=== PATIENT | male | born 1985 | race Caucasian/White ===

== ENCOUNTER 2020-11-11 18:38 | Emergency (ER) | payer SELFPAY ==
[2020-11-11 18:46] VITALS: BP 126/88; PULSE 108; RESP 16; TEMP 36.3; O2SAT 99; BMI 27.1
[2020-11-11] MEDS: sodium chloride 0.9% 1,000 ML 999 ML IV ×3 (19:25→22:15)
[2020-11-11] MEDS: ondansetron 2 mg/ML SDV 2 mL 4 MG IVP (19:28)
[2020-11-11 19:30] LABS: Basophils % 0.3 %; Eosinophils % 0.1 %; Hematocrit 56.9 % (42.0-52.0); Hemoglobin 19.6 g/dL (11.7-16.6); Lymphocytes # 2.1 10^3/uL (0.8-4.8); Lymphocytes % 14.4 %; Mean Corpuscular HGB Conc 34.4 g/dL (30.0-36.0); Mean Corpuscular Hemoglobin 29.1 pg (28.0-34.0); Mean Corpuscular Volume 84.4 fL (80-94); Mean Platelet Volume 10.6 fL (7.4-10.4); Monocytes # 1.1 10^3/uL (0.2-0.9); Monocytes % 7.5 %; Neutrophils # 11.42 10^3/uL (1.8-7.7); Neutrophils % 77.5 %; Nucleated Red Blood Cells % 0 %; Platelet Count 357 10^3/cmm (130-400); Red Blood Count 6.74 10^6/uL (4.1-5.3); Red Cell Distribution Width 12.4 % (12.1-15.1); White Blood Count 14.7 10^3/uL (4.0-10.0)
--- NOTE | 2020-11-11 19:48 | ED_ITS ---
HPI - Nausea/Vomiting/Diarrhea General: Chief complaint: Abdominal Pain Stated complaint: ab pain, n/v Time Seen by Provider: 11/11/20 18:52 History of Present Illness: HPI Narrative: This patient is a 34-year-old male who presents with vomiting and abdominal pain. His symptoms started on Sunday and have been constant. He has not had diarrhea. He has not been able to eat or drink anything. He throws up everything that he tries to drink. He reports that the only relief he gets is sitting in the hot shower which helps for a little while. He has never had anything like this before. He has no history of prior abdominal surgeries. He has not seen any blood in the stool or in the emesis. No coffee-ground emesis. His pain is a crampy and midabdominal. No one else has been sick around him. He has had episodes of chills and sweats but no documented fevers. He is otherwise healthy. MD elicited complaint: nausea, vomiting and abdominal pain Onset (ago): day(s) (5) Description of vomiting: watery Associated nausea: Yes Associated abdominal pain: Yes Location of pain: Epigastric and Periumbilical Radiation: does not radiate Pain consistency: constant and colicky Severity: severe Quality: cramping and aching Exacerbating factors: eating, vomiting and movement Relieving factors: hot shower/bath Associated symtoms: Reports diaphoresis, decreased urine output, fatigue, malaise, nausea, weakness and other (Feels dehydrated, minimal urine output); Denies change in vision, chest pain or headache(s) Review of Systems General: Reports: 10 or more systems reviewed and unremarkable except in HPI and below Const: Reports: chills, fatigue, malaise and diaphoresis; Denies: fever(s) Eyes: Denies: change in vision ENMT: Denies: odynophagia Card: Denies: chest pain or swelling of feet/ankles Resp: Denies: dyspnea, productive cough or non-productive cough GI: Reports: abdominal pain and nausea : Reports: oliguria; Denies: flank pain Musc: Denies: neck pain or back pain Skin/Breast: Denies: rash Neuro: Denies: headache(s), numbness in extremities or weakness in extremities [place]/Lymph: Denies: easy bruising or easy bleeding PFSH ED PFSH: Social History Smoking and tobacco status: current every day smoker cigarettes Packs smoked per day: 0.5 Alcohol intake: never Substance/Drug Use: current Substance/Drug use frequency: daily Substance/Drug use type: Marijuana Physical Exam Const: COMMON NORMALS: patient oriented x3, no limitations and alert GENERAL APPEARANCE: cooperative and other (Uncomfortable) NUTRITIONAL APPEARANCE: thin ORIENTATION/CONSCIOUSNESS: Yes awake, Yes oriented to person, Yes oriented to place and Yes oriented to time HENMT: HEAD & SCALP: normal to inspection FACE & SINUS: normal facial exam Eye: GENERAL EYE: appearance normal, both eyes and all related structures Neck/C-Spine: COMMON NORMALS: supple, no meningeal signs and no JVD Chest: COMMONS NORMALS: normal inspection of the chest Resp: COMMON NORMALS: normal respiratory effort, No use of accessory muscles and clear to auscultation bilaterally AUSCULTATION: clear to auscultation bilaterally Cardio: COMMON NORMALS: no JVD, regular rate, regular rhythm and No murmurs present (Cardio) RATE: regular rate RHYTHM: regular rhythm GI: COMMON NORMALS: Normal to inspection, nondistended, normoactive bowel sounds present, Soft to palpation and non-tender INSPECTION: Yes normal to inspection AUSCULTATION: Yes Hypoactive bowel sounds present PALPATION: Yes Soft to palpation and Yes Tenderness to palpation present (GI) (Epigastric) Back/Pelvis: COMMON NORMALS: thoracic and lumbar spine normal to inspection Extremity: COMMON NORMALS: normal to inspection Neuro: COMMON NORMALS: patient oriented x3, moves all extremities, no focal motor deficits and no sensory deficits noted SENSORIUM/ORIENTATION: Yes al ert, Yes oriented to person, Yes oriented to place and Yes oriented to time MENINGEAL SIGNS: Yes no meningeal signs Psych: COMMON NORMALS: mental status grossly normal, cooperative and normal affect Skin: COMMON NORMALS: no rashes or lesions noted and turgor normal GENERAL SKIN EXAM: no rashes or lesions noted and turgor normal Course ED course: Patient improved initially with Zofran and fluids. When he tried to drink something he threw up again. I went ahead and give him some Haldol. He does admit to smoking marijuana frequently and I suspect this is cannabis hyperemesis. He did improve with the Haldol. He got a total of 3 L of fluid. He felt much better and was ready to go home. He was very open to the idea that the marijuana could have caused this and plans to stop using. Vital Signs: Vital signs: Vital Signs Temperature 97.3 F L 11/11/20 18:46 Pulse Rate 108 H 11/11/20 18:46 Respiratory Rate 16 11/11/20 23:05 Blood Pressure 126/88 11/11/20 18:46 Pulse Oximetry 99 11/11/20 18:46 MDM - Nausea/Vomiting/Diarrhea MDM Narrative: Medical decision making narrative: Hyperemesis related to cannabis use. Viral gastroenteritis. Bowel obstruction. Inflammatory bowel syndrome. Food poisoning. Lab Data: Labs: Lab Results 11/11/20 11/11/20 11/11/20 Range/Units 18:55 18:55 20:32 WBC 14.7 H (4.0-10.0) 10^3/ uL RBC 6.74 H (4.1-5.3) 10^6/u L Hgb 19.6 H (11.7-16.6) g/dL Hct 56.9 H (42.0-52.0) % MCV 84.4 (80-94) fL MCH 29.1 (28.0-34.0) pg MCHC 34.4 (30.0-36.0) g/dL RDW 12.4 (12.1-15.1) % Plt Count 357 (130-400) 10^3/c mm MPV 10.6 H (7.4-10.4) fL Neut % (Auto) 77.5 % Lymph % (Auto) 14.4 % [place] % (Auto) 7.5 % Eos % (Auto) 0.1 % Baso % (Auto) 0.3 % Neut # (Auto) 11.42 H (1.8-7.7) 10^3/u L Lymph # (Auto) 2.1 (0.8-4.8) 10^3/u L [place] # (Auto) 1.1 H (0.2-0.9) 10^3/u L Eos # (Auto) 0.0 (0.0-0.8) 10^3/u L Baso # (Auto) 0.0 (0.0-0.1) 10^3/u L Nucleated RBC % (a uto) 0 % Nucleated RBCs # 0.0 /100WBC Sodium 134 L (136-145) mmol/L Potassium 3.7 (3.5-5.1) mmol/L Chloride 89 L (98-107) mmol/L Carbon Dioxide 28 (22-29) mmol/L Anion Gap 20.7 H (5-19) BUN 18 (6-20) mg/dL Creatinine 1.1 (0.7-1.2) mg/dL GFR Calculation 75.7 L (90-130) mL/min Glucose 105 (65-115) mg/dL Calculated Osmolal ity 280 L (285-295) mOsm/k g Calcium 10.1 (8.5-10.5) mg/dL Total Bilirubin 0.6 (0.15-1.2) mg/dL AST 20 (0-40) U/L ALT 31 (0-41) U/L Alkaline Phosphata se 113 (40-130) IU/L Total Protein 8.8 H (6.6-8.7) g/dL Albumin 5.2 (3.5-5.2) g/dL Globulin 3.6 (1.3-4.6) g/dL Lipase 28 (13-60) U/L Urine Color Yellow (Yellow) Urine Appearance Hazy A (CLEAR) Urine pH 6.5 (5-7) Ur Specific Gravit y 1.015 (1.005-1.030) Urine Protein Trace (Negative) Urine Glucose (UA) Norm (Normal) Urine Ketones Negative (Negative) Urine Blood Neg (Negative) Urine Nitrate Negative (Negative) Urine Bilirubin Neg (Negative) Urine Urobilinogen Norm (Negative) mg/dL Ur Leukocyte Isaura ase Negative (Negative) Urine RBC 0-4 H (0-2) /hpf Urine WBC None (0-5) /hpf Ur Squamous Epith Cells 0-4 H (0-5) /hpf Amorphous Sediment Not Reportable Urine Bacteria Trace (NONE) /hpf Urine Mucus 4+ /hpf Urine Opiates Scre en (Negative) ng/mL Ur Barbiturates Sc reen (Negative) ng/mL Ur Phencyclidine S crn (Negative) ng/mL Ur Amphetamines Sc reen (Negative) ng/mL U Benzodiazepines Scrn (Negative) ng/mL Urine Cocaine Scre en (Negative) ng/mL U Marijuana (THC) Screen (Negative) ng/mL 11/11/20 Range/Units 20:32 WBC (4.0-10.0) 10^3/ uL RBC (4.1-5.3) 10^6/u L Hgb (11.7-16.6) g/dL Hct (42.0-52.0) % MCV (80-94) fL MCH (28.0-34.0) pg MCHC (30.0-36.0) g/dL RDW (12.1-15.1) % Plt Count (130-400) 10^3/c mm MPV (7.4-10.4) fL Neut % (Auto) % Lymph % (Auto) % [place] % (Auto) % Eos % (Auto) % Baso % (Auto) % Neut # (Auto) (1.8-7.7) 10^3/u L Lymph # (Auto) (0.8-4.8) 10^3/u L [place] # (Auto) (0.2-0.9) 10^3/u L Eos # (Auto) (0.0-0.8) 10^3/u L Baso # (Auto) (0.0-0.1) 10^3/u L Nucleated RBC % (a uto) % Nucleated RBCs # /100WBC Sodium (136-145) mmol/L Potassium (3.5-5.1) mmol/L Chloride (98-107) mmol/L Carbon Dioxide (22-29) mmol/L Anion Gap (5-19) BUN (6-20) mg/dL Creatinine (0.7-1.2) mg/dL GFR Calculation (90-130) mL/min Glucose (65-115) mg/dL Calculated Osmolal ity (285-295) mOsm/k g Calcium (8.5-10.5) mg/dL Total Bilirubin (0.15-1.2) mg/dL AST (0-40) U/L ALT (0-41) U/L Alkaline Phosphata se (40-130) IU/L Total Protein (6.6-8.7) g/dL Albumin (3.5-5.2) g/dL Globulin (1.3-4.6) g/dL Lipase (13-60) U/L Urine Color (Yellow) Urine Appearance (CLEAR) Urine pH (5-7) Ur Specific Gravit y (1.005-1.030) Urine Protein (Negative) Urine Glucose (UA) (Normal) Urine Ketones (Negative) Urine Blood (Negative) Urine Nitrate (Negative) Urine Bilirubin (Negative) Urine Urobilinogen (Negative) mg/dL Ur Leukocyte Isaura ase (Negative) Urine RBC (0-2) /hpf Urine WBC (0-5) /hpf Ur Squamous Epith Cells (0-5) /hpf Amorphous Sediment Urine Bacteria (NONE) /hpf Urine Mucus /hpf Urine Opiates Scre en Negative (Negative) ng/mL Ur Barbiturates Sc reen Negative (Negative) ng/mL Ur Phencyclidine S crn Negative (Negative) ng/mL Ur Amphetamines Sc reen Negative (Negative) ng/mL U Benzodiazepines Scrn Negative (Negative) ng/mL Urine Cocaine Scre en Negative (Negative) ng/mL U Marijuana (THC) Screen Positive H (Negative) ng/mL Discharge Plan Discharge Patient Disposition: Home Clinical Impression: Acute dehydration, Cannabinoid hyperemesis syndrome Vomiting Qualifiers: Vomiting type: unspecified Vomiting Intractability: unspecified Nausea presence: with nausea Qualified Code(s): R11.2 - Nausea with vomiting, un specified Condition: Stable Prescriptions: New Zofran 4 mg tablet 4 mg PO Q6H PRN (Reason: nausea and vomiting) Qty: 7 RF: 0 Discharge Orders: Discharge ED (Routine); Ordered 11/11/20 Ordered By: Armida Gracia Discharge Diet: Advance as tolerated Discharge Activity: Resume usual activity Patient Instructions: Acute Nausea and Vomiting (ED), Cannabis Abuse (ED), Opioid Safety Activity Restrictions/Additional Instructions: Gradually advance diet as tolerated. Stop marijuana use. Take over the counter pepcid for stomach upset and zofran as needed for nausea or vomiting. Return to the ED if not able to tolerate fluids. 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
[2020-11-11 20:01] LABS: Alanine Aminotransferase 31 U/L (0-41); Albumin Level 5.2 g/dL (3.5-5.2); Alkaline Phosphatase 113 IU/L (40-130); Aspartate Amino Transferase 20 U/L (0-40); Blood Urea Nitrogen 18 mg/dL (6-20); Calcium 10.1 mg/dL (8.5-10.5); Carbon Dioxide 28 mmol/L (22-29); Chloride 89 mmol/L (98-107); Globulin 3.6 g/dL (1.3-4.6); Glomerular Filtration Rate 75.7 mL/min (90-130); Glucose 105 mg/dL (65-115); Lipase 28 U/L (13-60); Osmolality Calculated 280 mOsm/kg (285-295); Sodium 134 mmol/L (136-145); Total Bilirubin 0.6 mg/dL (0.15-1.2); Total Protein 8.8 g/dL (6.6-8.7)
[2020-11-11 20:04] LABS: Anion Gap 20.7 (5-19); Potassium 3.7 mmol/L (3.5-5.1)
[2020-11-11 21:10] LABS: Add Urine Microscopic? YES; Bilirubin Urine Neg (Negative); Blood Urine Neg (Negative); Glucose Urine UA Norm (Normal); Ketones Urine Negative (Negative); Leukocyte Esterase Urine Negative (Negative); Nitrate Urine Negative (Negative); Protein Urine Trace (Negative); Specific Gravity, Urine 1.015 (1.005-1.030); Urine Appearance Hazy (CLEAR); Urine Color Yellow (Yellow); Urobilinogen Urine Norm (Negative); pH Urine 6.5 (5-7)
[2020-11-11 21:26] LABS: RBC Urine 0-4 /hpf (0-2); Squamous Epithelial Cell Urine 0-4 /hpf (0-5)
[2020-11-11 21:28] LABS: Add Urine Culture? No; Bacteria Urine TRACE /hpf; Mucus Urine 4+ /hpf
[2020-11-11] MEDS: haloperidol inj 5 mg/mL INJ 1 mL 2 MG IVP (22:09)
[2020-11-11 22:15] LABS: Amphetamines Screen Urine Negative (Negative); Barbiturates Screen Urine Negative (Negative); Benzodiazepines Screen Urine Negative (Negative); Cocaine Screen Urine Negative (Negative); Opiate Screen Urine Negative (Negative); PCP Screen Urine Negative (Negative); THC Screen Urine Positive (Negative)
[2020-11-11 23:05] VITALS: RESP 16
== END 2020-11-11 23:06 | disposition home or self-care (01) ==
PROVIDERS: Emergency Provider Emergency Medicine
DX: R11.2 Nausea with vomiting, unspecified (principal); F12.920 Cannabis use, unspecified with intoxication, uncomplicated; E86.0 Dehydration; F17.210 Nicotine dependence, cigarettes, uncomplicated
CPT/HCPCS: 80053; 80306; 81001; 83690; 85025; 96361; 96374; 96375; 99283; J1630; J2405; J7030

== ENCOUNTER 2022-11-28 10:41 | Emergency (ER) | payer SELFPAY ==
[2022-11-28 10:47] VITALS: BP 158/97; PULSE 58; RESP 16; TEMP 36.7; O2SAT 99; BMI 28.6
[2022-11-28] MEDS: sodium chloride 0.9% 1,000 ML 999 ML IV ×2 (11:19→12:15)
[2022-11-28] MEDS: ondansetron 2 mg/ML SDV 2 mL 4 MG IVP (11:19)
[2022-11-28 11:21] VITALS: BP 121/88; PULSE 56; O2SAT 99
[2022-11-28 11:24] LABS: Basophils % 0.2 %; Eosinophils % 0.2 %; Hematocrit 49.5 % (42.0-52.0); Hemoglobin 16.6 g/dL (11.7-16.6); Lymphocytes # 1.6 10^3/uL (0.8-4.8); Mean Corpuscular HGB Conc 33.5 g/dL (30.0-36.0); Mean Corpuscular Volume 86.4 fl (80-94); Mean Platelet Volume 10.3 fL (7.4-10.4); Monocytes # 0.5 10^3/uL (0.2-0.9); Monocytes % 5.4 %; Neutrophils # 6.58 10^3/uL (1.8-7.7); Nucleated Red Blood Cells % 0 %; Platelet Count 294 10^3/cmm (130-400); Red Blood Count 5.73 10^6/uL (4.1-5.3); White Blood Count 8.7 10^3/uL (4.0-10.0)
--- NOTE | 2022-11-28 11:36 | ED_ITS ---
HPI - Nausea/Vomiting/Diarrhea General: Chief complaint: Nausea/Vomiting/Diarrhea Stated complaint: abd pain,N/V Time Seen by Provider: 11/28/22 10:56 Source: patient Mode of arrival: ambulatory History of Present Illness: 36-year-old male presents emergency room complaining of persistent nausea and vomiting for the last 3 to 4 days. He has had difficult time holding any fluids down. Denies hematochezia melena hematemesis coffee-ground emesis. No fever sweats or chills. Complains of generalized abdominal aching and discomfort. No dysuria urgency or frequency. MD elicited complaint: nausea and vomiting Onset (ago): minute(s) Associated nausea: Yes Associated abdominal pain: Yes Location of pain: Diffuse Pain consistency: intermittent Severity: mild Quality: cramping Exacerbating factors: none Relieving factors: none Associated symtoms: Reports nausea; Denies altered mental status, anxiety, bloating, change in vision, chest pain, cough, diaphoresis, decreased urine output, dizziness, dysuria, epistaxis, f atigue, fecal incontinence, fevers/chills, headache(s), anorexia, malaise, myalgias, numbness, palpitations, rash, short of breath, syncope, tenesmus, tinnitus or weakness Review of Systems Const: Denies: fever(s), chills, fatigue, malaise or diaphoresis Eyes: Denies: change in vision ENMT: Denies: tinnitus or epistaxis Card: Denies: chest pain, palpitations or syncope Resp: Denies: dyspnea, productive cough or non-productive cough GI: Reports: abdominal pain, nausea and vomiting; Denies: diarrhea, bloating or fecal incontinence : Denies: dysuria, urinary frequency or urinary urgency Skin/Breast: Denies: rash or pruritus Neuro: Denies: headache(s) or dizziness Psych: Denies: anxiety PFSH ED PFSH: Social History Smoking and tobacco status: current every day smoker cigarettes Packs smoked per day: 0.5 Alcohol intake: never Physical Exam Const: EXAM LIMITATIONS: no altered mental status GENERAL APPEARANCE: cooperative and comfortable ORIENTATION/CONSCIOUSNESS: Yes awake, Yes oriented to person, Yes oriented to place and Yes oriented to time HENMT: COMMON NORMALS: normocephalic, atraumatic and hearing grossly normal bilaterally HEAD & SCALP: normocephalic and atraumatic Resp: COMMON NORMALS: normal respiratory effort, No retractions, No use of accessory muscles and clear to auscultation bilaterally AUSCULTATION: clear to auscultation bilaterally Cardio: COMMON NORMALS: regular rate, regular rhythm and No murmurs present (Cardio) RATE: regular rate RHYTHM: regular rhythm GI: COMMON NORMALS: Soft to palpation and No hepatosplenomegaly present AUSCULTATION: Yes normoactive bowel sounds PALPATION: Yes Soft to palpation, No Tenderness to palpation present (GI), No Guarding due to palpation present (GI) and Yes No hepatosplenomegaly present Extremity: COMMON NORMALS: normal to inspection, capillary refill normal, no clubbing, cyanosis or edema, no calf tenderness and no pedal edema Neuro: SENSORIUM/ORIENTATION: Yes oriented to person, Yes oriented to place and Yes oriented to time Skin: COMMON NORMALS: no rashes or lesions noted GENERAL SKIN EXAM: no rashes or lesions noted Course Vital Signs: Vital signs: Vital Signs Temperature 98.1 F 11/28/22 10:47 Pulse Rate 61 11/28/22 14:00 Respiratory Rate 16 11/28/22 10:47 Blood Pressure 126/96 11/28/22 14:00 Pulse Oximetry 97 11/28/22 14:00 Oxygen Delivery Me thod 11/28/22 14:00 MDM - Nausea/Vomiting/Diarrhea Medical Decision Making Labs reviewed. Patient improved after IV fluids and antiemetics. Ondansetron did not particularly help with the Phenergan was very helpful he is feeling much better we will discharge patient home clinical diet for 2 days and advance as tolerated promethazine as needed for persistent nausea and vomiting advance diet slowly with simple carbohydrates reviewed with the patient and his return if he has problems. Medical Records I reviewed the patient's medical records. Lab Data I reviewed the patient's lab results. 11/28/22 11:10 11/28/22 11:10 Laboratory Results WBC 8.7 10^3/uL (4.0-10.0) 11/28/22 11:10 RBC 5.73 10^6/uL (4.1-5.3) H 11/28/22 11:10 Hgb 16.6 g/dL (11.7-16.6) 11/28/22 11:10 Hct 49.5 % (42.0-52.0) 11/28/22 11:10 MCV 86.4 fl (80-94) 11/28/22 11:10 MCH 29.0 pg (28.0-34.0) 11/28/22 11:10 MCHC 33.5 g/dL (30.0-36.0) 11/28/22 11:10 RDW 13.0 % (12.1-15.1) 11/28/22 11:10 Plt Count 294 10^3/cmm (130-400) 11/28/22 11:10 MPV 10.3 fL (7.4-10.4) 11/28/22 11:10 Neut % (Auto) 76.0 % 11/28/22 11:10 Lymph % (Auto) 18.0 % 11/28/22 11:10 [place] % (Auto) 5.4 % 11/28/22 11:10 Eos % (Auto) 0.2 % 11/28/22 11:10 Baso % (Auto) 0.2 % 11/28/22 11:10 Neut # (Auto) 6.58 10^3/uL (1.8-7.7) 11/28/22 11:10 Lymph # (Auto) 1.6 10^3/uL (0.8-4.8) 11/28/22 11:10 [place] # (Auto) 0.5 10^3/uL (0.2-0.9) 11/28/22 11:10 Eos # (Auto) 0.0 10^3/uL (0.0-0.8) 11/28/22 11:10 Baso # (Auto) 0.0 10^3/uL (0.0-0.1) 11/28/22 11:10 Nucleated RBC % (auto) 0 % 11/28/22 11:10 Nucleated RBCs # 0.0 /100WBC 11/28/22 11:10 Sodium 136 mmol/L (136-145) 11/28/22 11:10 Potassium 3.2 mmol/L (3.5-5.1) L 11/28/22 11:10 Chloride 98 mmol/L (98-107) 11/28/22 11:10 Carbon Dioxide 25 mmol/L (22-29) 11/28/22 11:10 Anion Gap 16.2 (5-19) 11/28/22 11:10 BUN 16 mg/dL (6-20) 11/28/22 11:10 Creatinine 1.1 mg/dL (0.7-1.2) 11/28/22 11:10 GFR Calculation 74.9 mL/min (90-130) L 11/28/22 11:10 Glucose 107 mg/dL (65-115) 11/28/22 11:10 Calculated Osmolality 284 mOsm/kg (285-295) L 11/28/22 11:10 Calcium 9.1 mg/dL (8.5-10.5) 11/28/22 11:10 Total Bilirubin 0.8 mg/dL (0.15-1.2) 11/28/22 11:10 AST 22 U/L (0-40) 11/28/22 11:10 ALT 24 U/L (0-41) 11/28/22 11:10 Alkaline Phosphatase 89 U/L (40-130) 11/28/22 11:10 Total Protein 7.5 g/dL (6.6-8.7) 11/28/22 11:10 Albumin 4.7 g/dL (3.5-5.2) 11/28/22 11:10 Globulin 2.8 g/dL (1.3-4.6) 11/28/22 11:10 Lipase 25 U/L (13-60) 11/28/22 11:10 Urine Color Dark yellow (Yellow) 11/28/22 12:20 Urine Appearance Hazy (CLEAR) A 11/28/22 12:20 Urine pH 7 (5-7) 11/28/22 12:20 Ur Specific [place] 1.020 (1.005-1.030) 11/28/22 12:20 Urine Protein Neg (Negative) 11/28/22 12:20 Urine Glucose (UA) Norm (Normal) 11/28/22 12:20 Urine Ketones 3+ (Negative) H 11/28/22 12:20 Urine Blood Neg (Negative) 11/28/22 12:20 Urine Nitrate Negative (Negative) 11/28/22 12:20 Urine Bilirubin 1+ (Negative) H 11/28/22 12:20 Urine Urobilinogen 4 mg/dL (Negative) H 11/28/22 12:20 Ur Leukocyte Esterase Negative (Negative) 11/28/22 12:20 Urine RBC None /hpf (0-2) 11/28/22 12:20 Urine WBC None /hpf (0-5) 11/28/22 12:20 Ur Squamous Epith Cells Rare /hpf (0-5) 11/28/22 12:20 Amorphous Sediment Not Reportable 11/28/22 12:20 Urine Bacteria None /hpf (NONE) 11/28/22 12:20 Urine Mucus 2+ /hpf 11/28/22 12:20 Discharge Plan Discharge Patient Disposition: Home Clinical Impression: Gastroenteritis Condition: Stable Prescriptions: New promethazine 25 mg tablet 25 mg PO Q6H PRN (Reason: nausea and vomiting) Qty: 20 0RF No Action ondansetron 4 mg Tablet,Disintegrating 4 mg PO Q6H PRN (Reason: Nausea) Discharge Orders: Discharge ED (Routine); Ordered 11/28/22 Ordered By: Flakito De Dios Discharge Diet: Clear Liquid Discharge Activity: Increase activity as tolerated Activity Restrictions/Additional Instructions: You are seen today for persistent nausea and vomiting. Recommend clear liquid diet for the next 24 to 48 hours then advance as tolerated. You can use the Phenergan as needed for relief of symptoms. 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
[2022-11-28 11:44] LABS: Alanine Aminotransferase 24 U/L (0-41); Albumin Level 4.7 g/dL (3.5-5.2); Alkaline Phosphatase 89 U/L (40-130); Anion Gap 16.2 (5-19); Aspartate Amino Transferase 22 U/L (0-40); Blood Urea Nitrogen 16 mg/dL (6-20); Calcium 9.1 mg/dL (8.5-10.5); Carbon Dioxide 25 mmol/L (22-29); Chloride 98 mmol/L (98-107); Globulin 2.8 g/dL (1.3-4.6); Glomerular Filtration Rate 74.9 mL/min (90-130); Glucose 107 mg/dL (65-115); Lipase 25 U/L (13-60); Osmolality Calculated 284 mOsm/kg (285-295); Potassium 3.2 mmol/L (3.5-5.1); Sodium 136 mmol/L (136-145); Total Bilirubin 0.8 mg/dL (0.15-1.2); Total Protein 7.5 g/dL (6.6-8.7)
[2022-11-28] MEDS: promethazine 25 mg/mL SDV 1 mL IM (12:55)
[2022-11-28 12:57] VITALS: BP 122/77; PULSE 69; O2SAT 100
[2022-11-28 13:00] VITALS: BP 146/96; PULSE 50; O2SAT 100
[2022-11-28 13:59] LABS: Urine Color Dark Yellow (Yellow)
[2022-11-28 14:00] VITALS: BP 126/96; PULSE 61; O2SAT 97
[2022-11-28 14:00] LABS: Add Urine Microscopic? YES; Bilirubin Urine 1+ (Negative); Blood Urine Neg (Negative); Glucose Urine UA Norm (Normal); Ketones Urine 3+ (Negative); Leukocyte Esterase Urine Negative (Negative); Nitrate Urine Negative (Negative); Protein Urine Neg (Negative); Urine Appearance Hazy (CLEAR); Urobilinogen Urine 4 mg/dL (Negative); pH Urine 7 (5-7)
[2022-11-28 14:01] LABS: Add Urine Culture? No; Mucus Urine 2+ /hpf; Squamous Epithelial Cell Urine RARE /hpf (0-5)
--- NOTE | 2022-12-05 12:55 | DCPLANNER ---
12.02.22 - patient called due to no primary care physician - no answer at this time 12.03.22 - patient called due to no primary care physician - no answer at this time
== END 2022-11-28 14:40 | disposition home or self-care (01) ==
PROVIDERS: Emergency Provider Family Medicine
DX: K52.9 Noninfective gastroenteritis and colitis, unspecified (principal); F17.210 Nicotine dependence, cigarettes, uncomplicated
CPT/HCPCS: 80053; 81001; 83690; 85025; 96372; 96374; 99284; J2405; J2550; J7030

== ENCOUNTER 2023-01-09 16:47 | Emergency (ER) | payer SELFPAY ==
[2023-01-09 17:07] VITALS: BP 158/109; PULSE 81; RESP 16; TEMP 36.7; O2SAT 95
--- NOTE | 2023-01-09 17:32 | ED_ITS ---
HPI - Nausea/Vomiting/Diarrhea General: Chief complaint: Nausea/Vomiting/Diarrhea Stated complaint: N/V Time Seen by Provider: 01/09/23 17:32 History of Present Illness: 37-year-old male patient comes in today with nausea and vomiting. Patient reports symptoms for the last 3 to 4 days. Patient had previous episode at 22 November at that time he was diagnosed with gastroenteritis. Patient reports a total of 5 episodes over the last 2 years. Patient reports that he does continue to smoke cannabis but has not taken any since starting nausea and vomiting. Patient appears nontoxic. Patient appears in mild discomfort. Patient does smoke nicotine. Patient denies alcohol use or other drug use. Patient takes no routine medications. Patient denies any blood in stool or vomitus. MD elicited complaint: nausea and vomiting Pertinent past history: cyclical vomiting Onset (ago): day(s) Description of vomiting: food contents and watery Associated nausea: Yes Associated abdominal pain: Yes (Midepigastric) Location of pain: Epigastric Pain consistency: intermittent Severity: mild Quality: cramping Exacerbating factors: vomiting Context: marijuana use Associated symtoms: Reports malaise and nausea; Denies change in vision, chest pain or headache(s) Review of Systems General: Reports: 10 or more systems reviewed and unremarkable except in HPI and below Const: Reports: malaise; Denies: fever(s) Eyes: Denies: change in vision ENMT: Denies: throat pain Card: Denies: chest pain Resp: Denies: dyspnea GI: Reports: nausea and vomiting; Denies: diarrhea or constipation : Denies: difficulty urinating Musc: Denies: neck pain or back pain Skin/Breast: Denies: rash Neuro: Denies: headache(s) PFSH ED PFSH: Social History Smoking and tobacco status: current every day smoker cigarettes Packs smoked per day: 0.5 Alcohol intake: never Physical Exam Const: COMMON NORMALS: alert HENMT: COMMON NORMALS: normocephalic HEAD & SCALP: normocephalic MOUTH: Normal oral and palatal mucosa present THROAT: posterior oropharynx normal Neck/C-Spine: COMMON NORMALS: full ROM Resp: COMMON NORMALS: normal respiratory effort and clear to auscultation bilaterally AUSCULTATION: clear to auscultation bilaterally Cardio: COMMON NORMALS: regular rate and regular rhythm RATE: regular rate RHYTHM: regular rhythm GI: COMMON NORMALS: Soft to palpation AUSCULTATION: Yes normoactive bowel sounds PALPATION: Yes Soft to palpation and Yes Tenderness to palpation present (GI) (Epigastric) : COMMON NORMALS: Yes no CVA tenderness BLADDER/KIDNEY EXAM: Yes no CVA t enderness Back/Pelvis: COMMON NORMALS: no CVA tenderness Extremity: COMMON NORMALS: no pedal edema Neuro: SENSORIUM/ORIENTATION: Yes alert Skin: COMMON NORMALS: turgor normal GENERAL SKIN EXAM: turgor normal Course Vital Signs: Vital signs: Vital Signs Temperature 98.2 F 01/09/23 20:51 Pulse Rate 76 01/09/23 20:51 Respiratory Rate 14 01/09/23 20:51 Blood Pressure 142/91 01/09/23 20:51 Pulse Oximetry 97 01/09/23 20:51 Oxygen Delivery Me thod Room Air 01/09/23 20:51 MDM - Nausea/Vomiting/Diarrhea Medical Decision Making 37-year-old male patient comes in today for complaints of persistent nausea and vomiting for the last 3 days. Patient has a prior history of cyclic vomiting syndrome. Patient reports syndrome started about 2 years ago and he has had 5 episodes since. Patient on exam has some epigastric tenderness. Bowel sounds are normal. Vital signs are normal except for elevated blood pressure. Differential diagnosis includes but not limited to gastritis, pancreatitis, gallbladder disease, cyclic vomiting syndrome, PUD. CT noted some signs of gastritis and colitis. Patient had improvement of symptoms after 2 L IV fluid, 25 mg of promethazine IM, along with 15 mg ketorolac and 10 mg of Reglan. Patient felt well enough to go home. Discussed patient the abnormalities for his CT scan recommended further evaluation with endoscopy including upper GI and colonoscopy. Case management was requested for follow-up appointment. Recommend return to the ER for worsening symptoms such as high fever, blood in vomit or stool, or new concerns. Patient stated understanding agreed to plan. Lab Data 01/09/23 17:30 01/09/23 17:30 Radiology Impressions Abdomen/Pelvis CT 01/09/23 18:51 IMPRESSION: 1. Thickening of the distal colon suspicious for infectious/inflammatory colitis. No bowel obstruction. 2. Possible gastritis. Laboratory Results WBC 12.7 10^3/uL (4.0-10.0) H 01/09/23 17: RBC 6.08 10^6/uL (4.1-5.3) H 01/09/23 17: Hgb 18.1 g/dL (11.7-16.6) H 01/09/23 17: Hct 52.9 % (42.0-52.0) H 01/09/23 17: MCV 87.0 fl (80-94) 01/09/23 17: MCH 29.8 pg (28.0-34.0) 01/09/23 17: MCHC 34.2 g/dL (30.0-36.0) 01/09/23: RDW 13.4 % (12.1-15.1) 01/09/23: Plt Count 319 10^3/cmm (130-400) 01/09/23 17: MPV 9.4 fL (7.4-10.4) 01/09/23 17: Neut % (Auto) 75.9 % 01/09/23 17: Lymph % (Auto) 17.4 % 01/09/23 17:30 [place] % (Auto) 6.1 % 01/09/23 17: Eos % (Auto) 0.2 % 01/09/23: Baso % (Auto) 0.2 % 01/09/23 17:30 Neut # (Auto) 9.66 10^3/uL (1.8-7.7) H 01/09/23: Lymph # (Auto) 2.2 10^3/uL (0.8-4.8) 01/09/23 17:30 [place] # (Auto) 0.8 10^3/uL (0.2-0.9) 01/09/23 17: Eos # (Auto) 0.0 10^3/uL (0.0-0.8) 01/09/23 17: Baso # (Auto) 0.0 10^3/uL (0.0-0.1) 01/09/23 17: Nucleated RBC % (auto) 0 % 01/09/23: Nucleated RBCs # 0.0 /100WBC 04/18/23 17:30 Sodium 138 mmol/L (136-145) 01/09/23 17:30 Potassium 4.0 mmol/L (3.5-5.1) 01/09/23 17:30 Chloride 99 mmol/L (98-107) 01/09/23 17:30 Carbon Dioxide 27 mmol/L (22-29) 01/09/23 17:30 Anion Gap 16.0 (5-19) 01/09/23 17:30 BUN 16 mg/dL (6-20) 01/09/23 17:30 Creatinine 0.9 mg/dL (0.7-1.2) 01/09/23 17:30 GFR Calculation 93.9 mL/min (90-130) 01/09/23 17: Glucose 104 mg/dL (65-115) 01/09/23 17:30 Calculated Osmolality 287 mOsm/kg (285-295) 01/09/23 17: Calcium 9.1 mg/dL (8.5-10.5) 01/09/23 17:30 Total Bilirubin 0.6 mg/dL (0.15-1.2) 01/09/23 17:30 AST 16 U/L (0-40) 01/09/23 17:30 ALT 21 U/L (0-41) 01/09/23 17:30 Alkaline Phosphatase 97 U/L (40-130) 01/09/23 17:30 Total Protein 8.1 g/dL (6.6-8.7) 01/09/23 17:30 Albumin 5.2 g/dL (3.5-5.2) 01/09/23 17:30 Globulin 2.9 g/dL (1.3-4.6) 01/09/23 17:30 Lipase 39 U/L (13-60) 01/09/23 17:30 Urine Color Yellow (Yellow) 01/09/23 17:33 Urine Appearance Clear (CLEAR) 01/09/23: Urine pH 5 (5-7) 01/09/23 17: Ur Specific [place] 1.020 (1.005-1.030) 01/09/23 17:33 Urine Protein Neg (Negative) 01/09/23: Urine Glucose (UA) Norm (Normal) 01/09/23 17: Urine Ketones Negative (Negative) 01/09/23 17:33 Urine Blood Neg (Negative) 01/09/23 17:33 Urine Nitrate Negative (Negative) 01/09/23 17:33 Urine Bilirubin Neg (Negative) 01/09/23 17:33 Urine Urobilinogen 1 mg/dL (Negative) H 01/09/23 17:33 Ur Leukocyte Esterase Negative (Negative) 01/09/23 17:33 Discharge Plan Discharge Patient Disposition: Home Clinical Impression: Cyclic vomiting syndrome, Colitis Gastritis Qualifiers: Gastritis type: unspecified gastritis Chronicity: unspecified Gastritis bleeding: without bleeding Qualified Code(s): K29.70 - Gastritis, unspecified, without bleeding Condition: Stable Prescriptions: New hydrocodone-acetaminophen 5-325 mg tablet 1 tab PO Q8H PRN (Reason: pain (scale score 7-10)) Qty: 7 0RF Continued promethazine 25 mg tablet 25 mg PO Q6H PRN (Reason: nausea and vomiting) Qty: 20 0RF No Action ondansetron 4 mg Tablet,Disintegrating 4 mg PO Q6H PRN (Reason: Nausea) Discharge Orders: Discharge ED (Routine); Ordered 01/09/23 Ordered By: Brandan Aguirre Discharge Diet: Usual diet Discharge Activity: Increase activity as tolerated Patient Instructions: Cyclic Vomiting Syndrome (ED) Activity Restrictions/Additional Instructions: Cyclic vomiting syndrome is often like a migraine of the stomach. They can persist over many days. Try to avoid triggers which will initiate the syndrome. Activity as tolerated. Drink plenty of water with medications. Follow-up with primary care for further instruction and evaluation. Return to ED for new concerns. Due to the gastritis and possible colitis on your CT scan, case management will contact you regarding a follow-up appointment for further evaluation with upper/lower endoscopy or other recommendations. 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
[2023-01-09 17:38] LABS: Basophils % 0.2 %; Eosinophils % 0.2 %; Hematocrit 52.9 % (42.0-52.0); Hemoglobin 18.1 g/dL (11.7-16.6); Lymphocytes # 2.2 10^3/uL (0.8-4.8); Lymphocytes % 17.4 %; Mean Corpuscular HGB Conc 34.2 g/dL (30.0-36.0); Mean Corpuscular Hemoglobin 29.8 pg (28.0-34.0); Mean Platelet Volume 9.4 fL (7.4-10.4); Monocytes # 0.8 10^3/uL (0.2-0.9); Monocytes % 6.1 %; Neutrophils # 9.66 10^3/uL (1.8-7.7); Neutrophils % 75.9 %; Nucleated Red Blood Cells % 0 %; Platelet Count 319 10^3/cmm (130-400); Red Blood Count 6.08 10^6/uL (4.1-5.3); Red Cell Distribution Width 13.4 % (12.1-15.1); White Blood Count 12.7 10^3/uL (4.0-10.0)
[2023-01-09 17:41] LABS: Add Urine Microscopic? NO; Charge for UA Resulting for Rev
[2023-01-09] MEDS: promethazine 25 mg/mL SDV 1 mL IM (17:49)
[2023-01-09] MEDS: sodium chloride 0.9% 1,000 ML 999 ML IV ×2 (17:49→18:53)
[2023-01-09 17:54] LABS: Bilirubin Urine Neg (Negative); Blood Urine Neg (Negative); Glucose Urine UA Norm (Normal); Ketones Urine Negative (Negative); Leukocyte Esterase Urine Negative (Negative); Nitrate Urine Negative (Negative); Protein Urine Neg (Negative); Urine Appearance Clear (CLEAR); Urine Color Yellow (Yellow); Urobilinogen Urine 1 mg/dL (Negative); pH Urine 5 (5-7)
[2023-01-09 18:00] LABS: Alanine Aminotransferase 21 U/L (0-41); Albumin Level 5.2 g/dL (3.5-5.2); Alkaline Phosphatase 97 U/L (40-130); Aspartate Amino Transferase 16 U/L (0-40); Blood Urea Nitrogen 16 mg/dL (6-20); Calcium 9.1 mg/dL (8.5-10.5); Carbon Dioxide 27 mmol/L (22-29); Chloride 99 mmol/L (98-107); Globulin 2.9 g/dL (1.3-4.6); Glomerular Filtration Rate 93.9 mL/min (90-130); Glucose 104 mg/dL (65-115); Lipase 39 U/L (13-60); Osmolality Calculated 287 mOsm/kg (285-295); Sodium 138 mmol/L (136-145); Total Bilirubin 0.6 mg/dL (0.15-1.2); Total Protein 8.1 g/dL (6.6-8.7)
--- NOTE | 2023-01-09 18:51 | CTR_ITS ---
PROCEDURE INFORMATION: Exam: CT Abdomen And Pelvis With Contrast Exam date and time: 01/09/2023 7:17 PM Age: 37 years old Clinical indication: Abdominal pain; Acute; Additional info: N/v, abd pain TECHNIQUE: Imaging protocol: Computed tomography of the abdomen and pelvis with contrast. Radiation optimization: All CT scans at this facility use at least one of these dose optimization techniques: automated exposure control; mA and/or kV adjustment per patient size (includes targeted exams where dose is matched to clinical indication); or iterative reconstruction. Contrast material: OMNI 350; Contrast volume: 100 ml; Contrast route: INTRAVENOUS (IV); REPORTING DATA: Count of CT and Cardiac NM exams in prior 12 months: This patient has received 0 known CTs and 0 known cardiac nuclear medicine studies in the 12 months prior to the current study. COMPARISON: CT abdomen pelvis w con* [id number] 04/19/2017 9:48 AM RADIATION DOSE METRICS: Total DLP (mGy-cm): 838.23 FINDINGS: Lungs: Unchanged left lower lobe calcified granuloma. Liver: Normal. No mass. Gallbladder and bile ducts: Normal. No calcified stones. No ductal dilation. Pancreas: Normal. No ductal dilation. Spleen: Normal. No splenomegaly. Adrenal glands: Normal. No mass. Kidneys and ureters: Normal. No hydronephrosis. Stomach and bowel: Wall thickening is seen in the descending colon sigmoid colon and rectum. There are also distal colonic diverticuli present which do not appear inflamed. No bowel obstruction. Thick thickened appearance of the stomach. Appendix: No evidence of appendicitis. Intraperitoneal space: Unremarkable. No free air. No significant fluid collection. Vasculature: Unremarkable. No abdominal aortic aneurysm. Lymph nodes: Unremarkable. No enlarged lymph nodes. Urinary bladder: Unremarkable as visualized. Reproductive: Unremarkable as visualized. Bones/joints: Unremarkable. No acute fracture. Soft tissues: Unremarkable. CT/CT abdomen pelvis w con* [id number] IMPRESSION: 1. Thickening of the distal colon suspicious for infectious/inflammatory colitis. No bowel obstruction. 2. Possible gastritis.
[2023-01-09] MEDS: metoclopramide 5 mg/mL SDV 2 mL 10 MG IVP (19:02)
[2023-01-09] MEDS: ketorolac 30 mg/mL INJ 15 MG IVP (19:03)
[2023-01-09 20:51] VITALS: BP 142/91; PULSE 76; RESP 14; TEMP 36.8; O2SAT 97
--- NOTE | 2023-01-10 09:04 | DCPLANNER ---
Addendum entered by Thania Hill 01/19/23 10:12: swing manager received the following message from general surgery regarding follow up appointment: Called PT # on file someone else answered and is giving him the message to call us back On 01/15/23 @ 13:07 Gwen Mac Wrote To General Surgery Front Off Called PT left VM 01/15/23 - Pt is self pay and has a balance over $5,000 and will need to speak to FA prior to being scheduled. Original Note: swing manager had message to schedule a follow up appointment for patient with general surgery. swing manager sent patients information to the front office staff at general surgery. Patients information will be printed and reviewed. Clinic will call patient with appointment information.
--- NOTE | 2023-01-12 13:00 | DCPLANNER ---
program manager called patient due to no primary care physician - no answer at this time.
== END 2023-01-09 20:47 | disposition home or self-care (01) ==
PROVIDERS: Family Medicine; Emergency Provider Nurse Practitioner Family
DX: K29.70 Gastritis, unspecified, without bleeding (principal); R11.15 Cyclical vomiting syndrome unrelated to migraine; K52.9 Noninfective gastroenteritis and colitis, unspecified; F17.210 Nicotine dependence, cigarettes, uncomplicated
CPT/HCPCS: 36415; 74177; 80053; 81003; 83690; 85025; 96361; 96372; 96374; 96375; 99285; J1885; J2550; J2765; J7030; Q9967

== ENCOUNTER 2023-07-21 10:07 | Observation (INO) | payer OTHER, SELFPAY ==
[2023-07-21] VITALS (11 sets, daily range): BP systolic 136–180; BP diastolic 89–110; PULSE 60–88; RESP 16–18; TEMP 36.4–37.3; O2SAT 94–100; BMI 31.1
--- NOTE | 2023-07-21 10:41 | W.ED.NAVMDI ---
HPI - Nausea/Vomiting/Diarrhea General: Chief complaint: Nausea/Vomiting/Diarrhea Stated complaint: NVD Time Seen by Provider: 07/21/23 10:12 History of Present Illness: 37-year-old male presents emergency department with complaints of feeling ill for the previous 1 week. He states over the past 24 hours he has had 10-12 episodes of nausea and vomiting. He states also he has had at least 8-10 episodes of watery diarrhea. He endorses increased fatigue and malaise. He denies recent sick contacts. He denies chest pain or shortness of breath or dizziness. He states he does have intermittent chills and complains of 9/10 epigastric pain that is worse after eating. Associated nausea: Yes Associated symtoms: Reports nausea Review of Systems GI: Reports: abdominal pain, nausea, vomiting and diarrhea PFSH ED PFSH: Social History Smoking and tobacco/nicotine status: current every day tobacco/nicotine user cigarettes Packs smoked per day: 0.5 Alcohol intake: never Substance/Drug Use: current Substance/Drug use frequency: daily Physical Exam Const: COMMON NORMALS: no acute distress, patient oriented x3 and alert HENMT: COMMON NORMALS: normocephalic and Normal nasal mucous membranes and turbinates present HEAD & SCALP: normocephalic NOSE: Normal nasal mucous membranes and turbinates present Eye: COMMON NORMALS: Equal, round and reactive pupils present and EOMs intact bilaterally PUPIL: Yes Equal, round and reactive pupils present Neck/C-Spine: COMMON NORMALS: full ROM, supple and no meningeal signs Resp: COMMON NORMALS: normal respiratory effort, No retractions and clear to auscultation bilaterally AUSCULTATION: clear to auscultation bilaterally Cardio: COMMON NORMALS: regular rate, regular rhythm, S1 normal heart sound present, S2 normal heart sound present and Peripheral pulses 2+ throughout RATE: regular rate RHYTHM: regular rhythm HEART SOUNDS: S1 normal heart sound present and S2 normal heart sound present PERIPHERAL PULSES: Peripheral pulses 2+ throughout GI: COMMON NORMALS: Soft to palpation INSPECTION: Yes normal to inspection AUSCULTATION: Yes normoactive bowel sounds PALPATION: Yes Soft to palpation and Yes Tenderness to palpation present (GI) (epigastric region) : COMMON NORMALS: Yes no CVA tenderness BLADDER/KIDNEY EXAM: Yes no CVA tenderness Back/Pelvis: COMMON NORMALS: no CVA tenderness Extremity: COMMON NORMALS: normal to inspection, full ROM and capillary refill normal Neuro: COMMON NORMALS: patient oriented x3, moves all extremities and no sensory deficits noted SENSORIUM/ORIENTATION: Yes alert MENINGEAL SIGNS: Yes no meningeal signs Psych: COMMON NORMALS: mental status grossly normal, Normal thought process present, cooperative and activity/motor behavior normal THOUGHT PROCESS: Normal thought process present Skin: COMMON NORMALS: no rashes or lesions noted, no wounds and turgor normal GENERAL SKIN EXAM: no rashes or lesions noted and turgor normal Course Vital Signs: Vital signs: Vital Signs Temperature 98.9 F 07/21/23 10:12 Pulse Rate 88 07/21/23 10:15 Respiratory Rate 18 07/21/23 13:03 Blood Pressure 166/110 07/21/23 10:15 Pulse Oximetry 94 07/21/23 10:15 Oxygen Delivery Me thod Room Air 07/21/23 10:15 MDM - Nausea/Vomiting/Diarrhea Medical Decision Making Physical exam completed and documented, I will obtain a CBC and a CMP as well as a lipase to rule out pancreatitis, gastroenteritis or other infectious illness. I will provide him IV fluid rehydration as he stated he has not been able to keep anything down for the previous 4 days. I will also provide him IV pain medication for his epigastric pain. I will provide the patient antinausea medication as he is actively vomiting upon presentation to the emergency department. Medical Records I reviewed the patient's medical records. Lab Data I reviewed the patient's lab results. 07/21/23 10:36 07/21/23 10:36 Radiology Impressions Abdomen/Pelvis CT 07/21/23 11:[address]: [address] evidence of acute intra-abdominal or pelvic pathology. 2. Additional findings, as above. COMMENTS: Consistent with the [employer]'s Incidental Findings Committee white paper (J Am [facility]see Radiol 2018): Any incidental renal lesion less than 1 cm or classified as too small to characterize, or any incidental cystic renal lesion characterized as simple-appearing, is likely benign. No follow-up imaging is recommended for these lesions per consensus recommendations based on imaging criteria. Laboratory Results WBC 12.57 10^3/uL (3.29-11.43) H 07/21/23 10:36 RBC 5.50 10^6/uL (3.85-5.65) 07/21/23 10:36 Hgb 16.20 g/dL (11.27-16.99) 07/21/23 10:36 Hct 48.0 % (37-53) 07/21/23 10:36 MCV 87.3 fl (82-101) 07/21/23 10:36 MCH 29.5 pg (27-33) 07/21/23 10:36 MCHC 33.8 g/dL (30-55) 07/21/23 10:36 RDW 13.4 % (12.1-15.1) 07/21/23 10:36 Plt Count 327 10^3/cmm (157-399) 07/21/23 10:36 MPV 10.1 fL (7.4-10.4) 07/21/23 10:36 Neut % (Auto) 84.5 % 07/21/23 10:36 Lymph % (Auto) 10.5 % 07/21/23 10:36 [place] % (Auto) 4.1 % 07/21/23 10:36 Eos % (Auto) 0.1 % 07/21/23 10:36 Baso % (Auto) 0.2 % 07/21/23 10:36 Neut # (Auto) 10.63 10^3/uL (1.8-7.7) H 07/21/23 10:36 Lymph # (Auto) 1.3 10^3/uL (0.8-4.8) 07/21/23 10:36 [place] # (Auto) 0.5 10^3/uL (0.2-0.9) 07/21/23 10:36 Eos # (Auto) 0.0 10^3/uL (0.0-0.8) 07/21/23 10:36 Baso # (Auto) 0.0 10^3/uL (0.0-0.1) 07/21/23 10:36 Nucleated RBC % (auto) 0 % 07/21/23 10:36 Nucleated RBCs # 0.0 /100WBC 07/21/23 10:36 Sodium 137 mmol/L (136-145) 07/21/23 10:36 Potassium 3.8 mmol/L (3.5-5.1) 07/21/23 10:36 Chloride 101 mmol/L (98-107) 07/21/23 10:36 Carbon Dioxide 24 mmol/L (22-29) 07/21/23 10:36 Anion Gap 15.8 (5-19) 07/21/23 10:36 BUN 11 mg/dL (6-20) 07/21/23 10:36 Creatinine 0.7 mg/dL (0.7-1.2) 07/21/23 10:36 GFR Calculation 125.5 mL/min (90-130) 07/21/23 10:36 Glucose 183 mg/dL (65-115) H 07/21/23 10:36 Calculated Osmolality 288 mOsm/kg (285-295) 07/21/23 10:36 Calcium 9.1 mg/dL (8.5-10.5) 07/21/23 10:36 Total Bilirubin 0.4 mg/dL (0.15-1.2) 07/21/23 10:36 AST 19 U/L (0-40) 07/21/23 10:36 ALT 25 U/L (0-41) 07/21/23 10:36 Alkaline Phosphatase 95 U/L (40-130) 07/21/23 10:36 Total Protein 7.3 g/dL (6.6-8.7) 07/21/23 10:36 Albumin 4.6 g/dL (3.5-5.2) 07/21/23 10:36 Globulin 2.7 g/dL (1.3-4.6) 07/21/23 10:36 Lipase 121 U/L (13-60) H 07/21/23 10:36 Influenza Type A Ag negative (Negative) 07/21/23 10:28 Influenza Type B Ag negative (Negative) 07/21/23 10:28 SARS-CoV-2 Ag (Rapid) negative (Negative) 07/21/23 10:28 All radiology interpretation(s) finalized by discharge ED provider radiology interpretation(s): FINDINGS: Lungs: Left lower lobe calcified granuloma. Diaphragm: Small hiatal hernia. Liver: Unremarkable. Gallbladder and bile ducts: No radiodense gallstones. No biliary ductal dilatation. Pancreas: Unremarkable. Spleen: Unremarkable. Adrenal glands: Normal. No mass. Kidneys and ureters: 5 mm low-density left renal lesion, too small to characterize. No radiodense calculi. No hydronephrosis. Stomach and bowel: No bowel wall thickening. No obstruction. No pneumatosis. Appendix: Normal. Intraperitoneal space: No free fluid. No organized fluid collection. No free air. Vasculature: Unremarkable. No aneurysm. Lymph nodes: No pathologically enlarged lymph nodes. Urinary bladder: Unremarkable as visualized. Reproductive: Unremarkable. Bones/joints: No acute osseous abnormality. Soft tissues: Unremarkable. CT/CT abdomen pelvis w con* [id number] IMPRESSION: 1. ? No CT evidence of acute intra-abdominal or pelvic pathology. 2. ? 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
[2023-07-21] MEDS: ondansetron 2 mg/ML SDV 2 mL 4 MG IVP ×3 (10:47→23:32)
[2023-07-21] MEDS: sodium chloride 0.9% 1,000 ML 999 ML IV (10:48)
[2023-07-21 10:58] LABS: Basophils % 0.2 %; Eosinophils % 0.1 %; Lymphocytes # 1.3 10^3/uL (0.8-4.8); Lymphocytes % 10.5 %; Mean Corpuscular HGB Conc 33.8 g/dL (30-55); Mean Corpuscular Hemoglobin 29.5 pg (27-33); Mean Corpuscular Volume 87.3 fl (82-101); Mean Platelet Volume 10.1 fL (7.4-10.4); Monocytes # 0.5 10^3/uL (0.2-0.9); Monocytes % 4.1 %; Neutrophils # 10.63 10^3/uL (1.8-7.7); Neutrophils % 84.5 %; Nucleated Red Blood Cells % 0 %; Platelet Count 327 10^3/cmm (157-399); Red Cell Distribution Width 13.4 % (12.1-15.1); White Blood Count 12.57 10^3/uL (3.29-11.43)
[2023-07-21 11:05] LABS: Alanine Aminotransferase 25 U/L (0-41); Albumin Level 4.6 g/dL (3.5-5.2); Alkaline Phosphatase 95 U/L (40-130); Anion Gap 15.8 (5-19); Aspartate Amino Transferase 19 U/L (0-40); Blood Urea Nitrogen 11 mg/dL (6-20); Calcium 9.1 mg/dL (8.5-10.5); Carbon Dioxide 24 mmol/L (22-29); Chloride 101 mmol/L (98-107); Globulin 2.7 g/dL (1.3-4.6); Glomerular Filtration Rate 125.5 mL/min (90-130); Glucose 183 mg/dL (65-115); Lipase 121 U/L (13-60); Osmolality Calculated 288 mOsm/kg (285-295); Potassium 3.8 mmol/L (3.5-5.1); Sodium 137 mmol/L (136-145); Total Bilirubin 0.4 mg/dL (0.15-1.2); Total Protein 7.3 g/dL (6.6-8.7)
[2023-07-21 11:18] LABS: Influenza A by IFA negative (Negative); Influenza B by IFA negative (Negative); SARS Covid-2 Antigen negative (Negative)
--- NOTE | 2023-07-21 11:39 | CTR_ITS ---
PROCEDURE INFORMATION: Exam: CT Abdomen And Pelvis With Contrast Exam date and time: 07/21/2023 11:59 AM Age: 37 years old Clinical indication: Abdominal pain; Epigastric; Additional info: Epigastric pain/pancreatitis TECHNIQUE: Imaging protocol: Computed tomography of the abdomen and pelvis with contrast. Axial, coronal and sagittal reformatted images were created and reviewed. Radiation optimization: All CT scans at this facility use at least one of these dose optimization techniques: automated exposure control; mA and/or kV adjustment per patient size (includes targeted exams where dose is matched to clinical indication); or iterative reconstruction. Contrast material: OMNI 350; Contrast volume: 100 ml; Contrast route: INTRAVENOUS (IV); REPORTING DATA: Count of CT and Cardiac NM exams in prior 12 months: This patient has received [address] and 0 known cardiac nuclear medicine studies in the 12 months prior to the current study. COMPARISON: CT abdomen pelvis w con* [id number] 01/09/2023 7:17 PM RADIATION DOSE METRICS: Total DLP (mGy-cm): 1007.43 FINDINGS: Lungs: Left lower lobe calcified granuloma. Diaphragm: Small hiatal hernia. Liver: Unremarkable. Gallbladder and bile ducts: No radiodense gallstones. No biliary ductal dilatation. Pancreas: Unremarkable. Spleen: Unremarkable. Adrenal glands: Normal. No mass. Kidneys and ureters: 5 mm low-density left renal lesion, too small to characterize. No radiodense calculi. No hydronephrosis. Stomach and bowel: No bowel wall thickening. No obstruction. No pneumatosis. Appendix: Normal. Intraperitoneal space: No free fluid. No organized fluid collection. No free air. Vasculature: Unremarkable. No aneurysm. Lymph nodes: No pathologically enlarged lymph nodes. Urinary bladder: Unremarkable as visualized. Reproductive: Unremarkable. Bones/joints: No acute osseous abnormality. Soft tissues: Unremarkable. CT/CT abdomen pelvis w con* [id number]: 1[address] No [address] evidence of acute intra-abdominal or pelvic pathology. 2. Additional findings, as above. COMMENTS: Consistent with the [employer]'s Incidental Findings Committee white paper (J Am Jessee Radiol 2018): Any incidental renal lesion less than 1 cm or classified as too small to characterize, or any incidental cystic renal lesion characterized as simple-appearing, is likely benign. No follow-up imaging is recommended for these lesions per consensus recommendations based on imaging criteria.
[2023-07-21] MEDS: iohexol 350 mg/mL 500 mL Btl (per mL) IV (12:04)
[2023-07-21] MEDS: fentaNYL 50 mcg/mL INJ 2mL IVP (13:03)
[2023-07-21] MEDS: lactated ringers 1,000 ML 100 ML IV (13:11)
[2023-07-21] MEDS: piperacillin-tazobactam 3.375 GM in sodium chloride 0.9% (plus) 50 ML IV ×2 (13:11→21:07)
--- NOTE | 2023-07-21 15:05 | PM.HP ---
Providers/Chief Complaint Admitting Physician: Elfego Asher DO Primary Care Provider: Mic Em MD Chief Complaint: NVD History of Present Illness Levi Paris is a 37 year old male presents with a 4-day history of epigastric pain nausea vomiting. Patient reports a many year history of this epigastric pain. He says when it first started out it was every 6 months or so now twice a month he has anywhere from 2 to 4 days in a row with this epigastric pain nausea/vomiting and diarrhea. He states he can tell that it is coming on by having abdominal pain when he is eating then the pain increases and he gets the nausea vomiting and diarrhea. He has seen his primary care and he has been started on Protonix 40 mg once a day this has not helped his symptoms. In the ER his lipase is elevated at 161 with a white count of 13,000. His CT abdomen and pelvis is benign. He will be brought in for pancreatitis bowel rest and pain control. Review of Systems Const: Denies: fever(s) or chills Eyes: Denies: change in vision ENMT: Denies: throat pain or nasal congestion Card: Denies: chest pain or palpitations Resp: Denies: dyspnea or productive cough GI: Reports: abdominal pain, nausea, vomiting, diarrhea and change in stool character : Denies: difficulty urinating or dysuria Musc: Denies: back pain or extremity pain Skin/Breast: Denies: rash or lesions Neuro: Denies: headache(s) or dizziness Psych: Denies: anxiety or depression Bertram/Lymph: Denies: easy bruising or easy bleeding Medications/Allergies Home Medications Medication Instructions Recorded Confirmed Last Taken Type ibuprofen 200 mg tablet 200 mg PO Q6H PRN Pain 07/21/23 07/21/23 Unknown History pantoprazole 40 mg tablet,delayed 40 mg PO QAM 07/21/23 07/21/23 4 Days Ago History release ~07/17/23 Allergies Allergy/AdvReac Type Severity Reaction Status Date / Time codeine Allergy ALGY-Hives Verified 07/21/23 12:49 PFSH Acute PFSH: Social History Smoking and tobacco/nicotine status: current every day tobacco/nicotine user cigarettes Packs smoked per day: 0.5 Alcohol intake: never Substance/Drug Use: current Substance/Drug use frequency: daily Vitals/I&O/Wt Last Vital Signs Temp 98.9 F 07/21/23 10:12 Pulse 88 07/21/23 10:15 Resp 18 07/21/23 13:03 BP 145/90 07/21/23 12:00 Pulse Ox 100 07/21/23 11:45 O2 Del Method Room Air 07/21/23 11:45 07/21/23 07/21/23 07/21/23 06:59 14:59 22:59 Intake Total 1000 / 1000 Balance 1000 / 1000 Weight last 48 hrs Weight 104.326 kg Physical Exam Narrative: Patient is an obese white male with minimal distress right now. Neurologic alert and oriented to person place time and situation exam is nonfocal. HEENT: H C/AT, EO WV/PERRLA. Nasopharyngeal mucosa moist and pink. Neck supple no JVD carotid bruits or lymphadenopathy Chest rises symmetrically with inspiration no accessory muscle use Heart: Regular normal S1-S2 without murmurs clicks gallops or rubs Lungs clear to auscultation without wheezes rales or rhonchi Abdomen protuberant overall soft mild to moderate tenderness in the epigastrium and slightly in the right upper quadrant no rebound rigidity or guarding Extremities no clubbing cyanosis or edema Skin no lesions or rashes Psych normal mood and affect Data 07/21/23 10:36 07/21/23 10:36 CT Abd/Pel: Radiologist's impression: IMPRESSION: 1. ? No CT evidence of acute intra-abdominal or pelvic pathology. 2. ? Additional findings, as above. ? A&P Assessment and plan (1) Acute pancreatitis: Lipase is double the upper limit of normal. Bowel rest fluids pain control (2) Abdominal pain: As above (3) Nausea & vomiting: Increased dose of Zofran. Plan Discussed with surgery they are unable to do an EGD over the weekend. It appears to be more pancreatitis although from an unknown etiology any further work-up can be done as an outpatient. Attestations Medical Necessity Statement*: Patient is placed in observation since his care as not expected to cross 2 midnights. Coding Level of Care Code Acute Code for [facility] Fwd Diagnoses Acute pancreatitis K85.90 Abdominal pain R10.9 Nausea & vomiting R11.2
[2023-07-21] MEDS: pantoprazole 40 mg SDV IVP (16:23)
[2023-07-21] MEDS: morphine 4 mg/mL SDV 1 mL IVP ×2 (16:24→23:32)
[2023-07-21] MEDS: sodium chloride 0.9% 1,000 ML 150 ML IV (16:31)
[2023-07-22] VITALS (9 sets, daily range): BP systolic 132–167; BP diastolic 79–106; PULSE 57–72; RESP 16–18; TEMP 36.2–36.9; O2SAT 95–97
[2023-07-22] MEDS: sodium chloride 0.9% 1,000 ML 150 ML IV ×3 (00:12→15:35)
[2023-07-22] MEDS: ketorolac 30 mg/mL INJ IVP ×3 (00:27→12:37)
[2023-07-22] MEDS: pantoprazole 40 mg SDV IVP ×2 (04:13→14:55)
[2023-07-22] MEDS: piperacillin-tazobactam 3.375 GM in sodium chloride 0.9% (plus) 50 ML IV ×3 (04:44→20:10)
[2023-07-22 04:45] LABS: Lipase 29 U/L (13-60)
[2023-07-22 05:22] LABS: Magnesium 2.1 mg/dL (1.7-2.3)
[2023-07-22] MEDS: ondansetron 2 mg/ML SDV 2 mL 4 MG IVP ×3 (05:53→23:23)
[2023-07-22] MEDS: morphine 4 mg/mL SDV 1 mL IVP (07:34)
--- NOTE | 2023-07-22 13:13 | PM.PN ---
Subjective Subjective: 07/21/2023: Patient admitted in the afternoon with a 4-day history of epigastric pain nausea vomiting.? Patient reports a many year history of this epigastric pain.? He says when it first started out it was every 6 months or so now twice a month he has anywhere from 2 to 4 days in a row with this epigastric pain nausea/vomiting and diarrhea.? He states he can tell that it is coming on by having abdominal pain when he is eating then the pain increases and he gets the nausea vomiting and diarrhea.? He has seen his primary care and he has been started on Protonix 40 mg once a day this has not helped his symptoms.? In the ER his lipase is elevated at 161 with a white count of 13,000.? His CT abdomen and pelvis is benign.? He will be brought in for pancreatitis bowel rest and pain control. 07/22/2023: Patient is feeling a lot better but still having epigastric pain to palpation. Lipase is now normal at 28. Since patient has had difficulties for months now will consult for possible further GI work-up. Will obtain right upper quadrant ultrasound. Vitals/I&O/Wt Last Vital Signs Temp 98.0 F 07/22/23 11:06 Pulse 57 L 07/22/23 11:06 Resp 17 07/22/23 11:06 BP 151/82 07/22/23 11:06 Pulse Ox 95 07/22/23 11:06 O2 Del Method Room Air 07/22/23 11:06 07/21/23 07/22/23 07/22/23 22:59 06:59 14:59 Intake Total 1570 / 2570 1492.5 / 4062.5 50 / 50 Balance 1570 / 2570 1492.5 / 4062.5 50 / 50 Weight last 48 hrs Weight 104.326 kg Physical Exam Narrative: Patient is an obese white male with NAD Heart: Regular normal S1-S2 without murmurs clicks gallops or rubs Lungs clear to auscultation without wheezes rales or rhonchi Abdomen protuberant overall soft mild tenderness in the epigastrium only today. No rebound rigidity or guarding Extremities no clubbing cyanosis or edema Data 07/21/23 10:36 07/21/23 10:36 Other Labs: Lipase 28 A&P Assessment and plan (1) Acute pancreatitis: Lipase is now normal but patient is still having pain. Right upper quadrant ultrasound Consult to Dr. Horton. Patient will benefit for further work-up as outpatient as well. Patient may have clear liquid diet and advance diet to low-fat when able. (2) Abdominal pain: As above (3) Nausea & vomiting: Zofran 8 mg effective. Attestations Medical Necessity Statement*: Patient is placed in observation since his care as not expected to cross 2 midnights. Coding Level of Care Code Acute Code for [facility] Diagnoses Acute pancreatitis K85.90 Abdominal pain R10.9 Nausea & vomiting R11.2
--- NOTE | 2023-07-22 16:07 | P.CONIM_ITS ---
Providers/Reason For Consult Consulting Physician/Specialty*: General surgery Reason for Consult*: Upper abdominal pain Attending Physician: Elfego Asher DO Primary Care Provider: Mic Em MD History of Present Illness History of Present Illness Levi Paris is a 37 year old male who has been having history of recurrent epigastric abdominal pain associated with nausea and vomit. He was seen in the emergency department and noted to have elevated lipase consistent with pancreatitis. The CT scan of the abdomen pelvis was negative for evidence of pathology, no evidence of gallstones or biliary disease. Patient was admitted and is currently improving. I have been asked to evaluate the patient for further GI work-up due to his upper abdominal pain. Per patient report he does not consume alcohol, pain is intermittent and not clearly associated with food intake. Denies changes in bowel movements. Review of Systems Narrative: 10 point review of system was done and is negative otherwise noted in HPI. Medications/Allergies Home Medications Medication Instructions Recorded Confirmed Last Taken Type ibuprofen 200 mg tablet 200 mg PO Q6H PRN Pain 07/21/23 07/21/23 Unknown History pantoprazole 40 mg tablet,delayed 40 mg PO QAM 07/21/23 07/21/23 4 Days Ago History release ~07/17/23 Allergies Allergy/AdvReac Type Severity Reaction Status Date / Time codeine Allergy ALGY-Hives Verified 07/21/23 12:49 Current Medications Generic Name Dose Route Start Last Admin Trade Name Freq PRN Reason Stop Dose Admin Piperacillin Sod/Tazobactam 50 mls @ 12.5 mls/hr 07/21/23 21:00 07/22/23 12:36 Sod 3.375 gm/ Sodium Chloride IV 12.5 mls/hr Q8H FRANCISCO Administration Sodium Chloride 1,000 mls @ 75 mls/hr 07/21/23 15:30 07/22/23 15:35 Sodium Chloride 0.9% IV 150 mls/hr .[id number] FRANCISCO Administration Ketorolac Tromethamine 30 mg 07/21/23 15:30 07/22/23 12:37 Ketorolac 30 Mg/Ml Inj IVP 07/26/23 15:29 30 mg Q6H PRN Administration MODERATE PAIN Ondansetron HCl 4 mg 07/21/23 13:00 07/22/23 12:37 Ondansetron 2 Mg/Ml Sdv 2 Ml IVP 4 mg Q6H PRN Administration NAUSEA AND VOMITING Pantoprazole Sodium 40 mg 07/21/23 15:30 07/22/23 14:55 Pantoprazole 40 Mg Sdv IVP 40 mg Q12H FRANCISCO Administration PFSH Acute PFSH: Social History Smoking and tobacco/nicotine status: current every day tobacco/nicotine user cigarettes Packs smoked per day: 0.5 Alcohol intake: never Substance/Drug Use: current Substance/Drug use frequency: daily Vitals/I&O/Wt Last Vital Signs Temp 98.0 F 07/22/23 11:06 Pulse 57 L 07/22/23 11:06 Resp 17 07/22/23 11:06 BP 151/82 07/22/23 11:06 Pulse Ox 95 07/22/23 11:06 O2 Del Method Room Air 07/22/23 11:06 07/22/23 07/22/23 07/22/23 06:59 14:59 22:59 Intake Total 1492.5 / 4062.5 1050 / 1050 Balance 1492.5 / 4062.5 1050 / 1050 Weight last 48 hrs Weight 230 lb Physical Exam Narrative: General : Patient is well developed , no acute distress, oriented x3 Head : Normal cephalic, a-traumatic. Nose : Mucous membranes are without erythema. Lungs : Equal chest rise bilaterally, no use of accessory muscles, trachea is mi dline. CV : Rate and rhythm are normal. Abdomen : Soft, ND, minimal epigastric tenderness, no g/r/m Extremities : No edema. Upper extremities are normal bilaterally. Back : non-tender to palpation, no CVA tenderness. Data 07/21/23 10:36 07/21/23 10:36 A&P Assessment and plan (1) Acute pancreatitis: (2) Abdominal pain: Plan After complete history physical examination review of all available clinical data further work-up is needed in order to identify the etiology of patient recurrent abdominal pain. I will recommend for a right upper quadrant ultrasound to evaluate for gallstones, as gallstone disease may be difficult to identify on CT scan and may be causative of his pancreatitis. If ultrasound is negative I have discussed the possibility of an EGD as outpatient. I will continue to follow while the patient is in-house. Coding Level of Care Code 44142 Diagnoses Acute pancreatitis K85.90 Abdominal pain R10.9
[2023-07-23] MEDS: pantoprazole 40 mg SDV IVP (02:40)
[2023-07-23 04:00] VITALS: BP 143/89; PULSE 64; RESP 17; TEMP 36.3; O2SAT 95
[2023-07-23] MEDS: piperacillin-tazobactam 3.375 GM in sodium chloride 0.9% (plus) 50 ML IV (04:47)
[2023-07-23] MEDS: sodium chloride 0.9% 1,000 ML 75 ML IV (04:47)
--- NOTE | 2023-07-23 06:00 | US_ITS ---
WS: [id number] Complete ABDOMINAL ULTRASOUND HISTORY: Epigastric pain COMPARISON: None available. Liver: 14.4 cm in length. Normal size liver and echogenicity. No bile duct dilatation or mass. Portal Vein: Normal hepatopetal flow with monophasic waveform. Gallbladder: Normally distended gallbladder with no stones or wall thickening. CBD: 0.3 cm Pancreas: Incompletely visualized. No abnormality identified. Right kidney: 10.9 cm x 5.1 x 5.5 cm. Cortex: 1.3 cm. Normal size and echogenicity. No hydronephrosis or mass. Left kidney: 13.0 cm x 6.3 cm x 6.0 cm. Cortex: 1.3 cm. 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 L ess likely calcification as there is no shadowing. Spleen: Normal. Aorta and IVC: Unremarkable abdominal aorta and IVC. Impression: 1. No acute abnormalities identified within the abdomen ultrasound. 2. 5 mm hypoechoic focus superior pole LEFT kidney. Nonshadowing calcification versus angiomyolipoma. 3. Normal gallbladder.
[2023-07-23 07:20] VITALS: BP 134/83; PULSE 61; RESP 16; TEMP 36.6; O2SAT 96
[2023-07-23 11:18] VITALS: BP 151/93; PULSE 57; RESP 17; TEMP 36.8; O2SAT 95
[2023-07-23 11:24] LABS: Basophils % 0.4 %; Eosinophils # 0.1 10^3/uL (0.0-0.8); Eosinophils % 1.1 %; Hematocrit 47.9 % (37-53); Lymphocytes # 1.5 10^3/uL (0.8-4.8); Lymphocytes % 18.6 %; Mean Corpuscular HGB Conc 34.2 g/dL (30-55); Mean Corpuscular Hemoglobin 29.5 pg (27-33); Mean Corpuscular Volume 86.2 fl (82-101); Mean Platelet Volume 9.8 fL (7.4-10.4); Monocytes # 0.5 10^3/uL (0.2-0.9); Monocytes % 5.8 %; Neutrophils # 5.88 10^3/uL (1.8-7.7); Neutrophils % 73.7 %; Nucleated Red Blood Cells % 0 %; Platelet Count 286 10^3/cmm (157-399); Red Blood Count 5.56 10^6/uL (3.85-5.65); Red Cell Distribution Width 12.7 % (12.1-15.1); White Blood Count 7.97 10^3/uL (3.29-11.43)
[2023-07-23 11:42] LABS: Alanine Aminotransferase 68 U/L (0-41); Albumin Level 4.4 g/dL (3.5-5.2); Alkaline Phosphatase 93 U/L (40-130); Anion Gap 13.8 (5-19); Aspartate Amino Transferase 40 U/L (0-40); Blood Urea Nitrogen 11 mg/dL (6-20); Calcium 8.6 mg/dL (8.5-10.5); Carbon Dioxide 24 mmol/L (22-29); Chloride 103 mmol/L (98-107); Glomerular Filtration Rate 107.6 mL/min (90-130); Glucose 125 mg/dL (65-115); Osmolality Calculated 285 mOsm/kg (285-295); Potassium 3.8 mmol/L (3.5-5.1); Sodium 137 mmol/L (136-145); Total Bilirubin 0.8 mg/dL (0.15-1.2); Total Protein 6.4 g/dL (6.6-8.7)
--- NOTE | 2023-07-23 11:54 | P.DS_ITS ---
Discharge Providers Date of Admission: 07/21/23 13:00 Date of Discharge: July 23, 2023 Attending Provider at Admission: Elfego Asher DO Attending Provider at Discharge: John Boyle MD Primary Care Provider: Mic Em MD Diagnoses at Discharge Discharge Diagnosis (1) Acute pancreatitis: Status: Acute (2) Abdominal pain: Status: Acute Reason for Visit Reason for Visit: NVD Brief History: History as per HPI: Levi Paris is a 37 year old male presents with a 4-day history of epigastric pain nausea vomiting.? Patient reports a many year history of this epigastric pain.? He says when it first started out it was every 6 months or so now twice a month he has anywhere from 2 to 4 days in a row with this epigastric pain nausea/vomiting and diarrhea.? He states he can tell that it is coming on by having abdominal pain when he is eating then the pain increases and he gets the nausea vomiting and diarrhea.? He has seen his primary care and he has been started on Protonix 40 mg once a day this has not helped his symptoms.? In the ER his lipase is elevated at 161 with a white count of 13,000.? His CT abdomen and pelvis is benign.? He will be brought in for pancreatitis bowel rest and pain control. Hospital Course Hospital Course Patient was admitted to the hospital further evaluation and management of possible pancreatitis. He was started on conservative treatment with bowel rest, IV hydration and pain management. Gallbladder etiology was ruled out with CT abdomen pelvis and gallbladder ultrasound. Gradually patient's pain improved and he was able to tolerate clear liquid diet. He has been discharged in medically stable condition with advised to continue taking full liquid diet for next few days and then advance very gradually within next 1 week to a regular diet. He is advised in detail about multiple frequent small meals. Physical Exam Narrative: General : Patient is well developed , no acute distress, oriented x3 Head : Normal cephalic, a-traumatic. Nose : Mucous membranes are without erythema. Lungs : Equal chest rise bilaterally, no use of accessory muscles, trachea is midline. CV : Rate and rhythm are normal. Abdomen : Soft, ND, minimal epigastric tenderness, no g/r/m Extremities : No edema. Upper extremities are normal bilaterally. Back : non-tender to palpation, no CVA tenderness. Discharge Data Studies Completed and Pending Completed Studies During Hospitalization Category Date Time Status CT abdomen pelvis w con* [id number] Stat Cat Scan 07/21/23 11:39 Completed US abdomen complete* [id number] Routine Ultrasound 07/23/23 06:00 Completed Radiology Impressions Abdomen/Pelvis CT 07/21/23 11:[address]: [address] evidence of acute intra-abdominal or pelvic pathology. 2. Additional findings, as above. COMMENTS: Consistent with the [employer]'s Incidental Findings Committee white paper (J Am [employer]iol 2018): Any incidental renal lesion less than 1 cm or classified as too small to characterize, or any incidental cystic renal lesion characterized as simple-appearing, is likely benign. No follow-up imaging is recommended for these lesions per consensus recommendations based on imaging criteria. Laboratory Results WBC 7.97 10^3/uL (3.29-11.43) 07/23/23 11:02 RBC 5.56 10^6/uL (3.85-5.65) 07/23/23 11:02 Hgb 16.40 g/dL (11.27-16.99) 07/23/23 11:02 Hct 47.9 % (37-53) 07/23/23 11:02 MCV 86.2 fl (82-101) 07/23/23 11:02 MCH 29.5 pg (27-33) 07/23/23 11:02 MCHC 34.2 g/dL (30-55) 07/23/23 11:02 RDW 12.7 % (12.1-15.1) 07/23/23 11:02 Plt Count 286 10^3/cmm (157-399) 07/23/23 11:02 MPV 9.8 fL (7.4-10.4) 07/23/23 11:02 Neut % (Auto) 73.7 % 07/23/23 11:02 Lymph % (Auto) 18.6 % 07/23/23 11:02 Cloud % (Auto) 5.8 % 07/23/23 11:02 Eos % (Auto) 1.1 % 07/23/23 11:02 Baso % (Auto) 0.4 % 07/23/23 11:02 Neut # (Auto) 5.88 10^3/uL (1.8-7.7) 07/23/23 11:02 Lymph # (Auto) 1.5 10^3/uL (0.8-4.8) 07/23/23 11:02 Cloud # (Auto) 0.5 10^3/uL (0.2-0.9) 07/23/23 11:02 Eos # (Auto) 0.1 10^3/uL (0.0-0.8) 07/23/23 11:02 Baso # (Auto) 0.0 10^3/uL (0.0-0.1) 07/23/23 11:02 Nucleated RBC % (auto) 0 % 07/23/23 11:02 Nucleated RBCs # 0.0 /100WBC 07/23/23 11:02 Sodium 137 mmol/L (136-145) 07/23/23 11:02 Potassium 3.8 mmol/L (3.5-5.1) 07/23/23 11:02 Chloride 103 mmol/L (98-107) 07/23/23 11:02 Carbon Dioxide 24 mmol/L (22-29) 07/23/23 11:02 Anion Gap 13.8 (5-19) 07/23/23 11:02 BUN 11 mg/dL (6-20) 07/23/23 11:02 Creatinine 0.8 mg/dL (0.7-1.2) 07/23/23 11:02 GFR Calculation 107.6 mL/min (90-130) 07/23/23 11:02 Glucose 125 mg/dL (65-115) H 07/23/23 11:02 Calculated Osmolality 285 mOsm/kg (285-295) 07/23/23 11:02 Calcium 8.6 mg/dL (8.5-10.5) 07/23/23 11:02 Magnesium 2.1 mg/dL (1.7-2.3) 07/22/23 03:21 Total Bilirubin 0.8 mg/dL (0.15-1.2) 07/23/23 11:02 AST 40 U/L (0-40) 07/23/23 11:02 ALT 68 U/L (0-41) H 07/23/23 11:02 Alkaline Phosphatase 93 U/L (40-130) 07/23/23 11:02 Total Protein 6.4 g/dL (6.6-8.7) L 07/23/23 11:02 Albumin 4.4 g/dL (3.5-5.2) 07/23/23 11:02 Globulin 2.0 g/dL (1.3-4.6) 07/23/23 11:02 Lipase 29 U/L (13-60) 07/22/23 03:21 Influenza Type A Ag negative (Negative) 07/21/23 10:28 Influenza Type B Ag negative (Negative) 07/21/23 10:28 SARS-CoV-2 Ag (Rapid) negative (Negative) 07/21/23 10:28 Vitals Last Vital Signs Temp 98.3 F 07/23/23 11:18 Pulse 57 L 07/23/23 11:18 Resp 17 07/23/23 11:18 BP 151/93 07/23/23 11:18 Pulse Ox 95 07/23/23 11:18 O2 Del Method Room Air 07/23/23 11:18 Discharge Plan Discharge Patient Disposition: Home Condition: Stable Prescriptions: New ondansetron HCl 4 mg tablet 4 mg PO Q8H 4 Days Qty: 12 0RF Continued pantoprazole 40 mg tablet,delayed release (DR/EC) 40 mg PO QAM ibuprofen 200 mg Tablet 200 mg PO Q6H PRN (Reason: Pain) Discharge Orders: Discharge Order (Routine); Ordered 07/23/23 Ordered By: John Boyle Referrals: Mic Em MD [Primary Care Provider] - 07/30/23 1:30 pm Discharge Diet: Advance as tolerated and Clear Liquid Discharge Activity: Resume usual activity and Increase activity as tolerated Patient Instructions: Ondansetron (By mouth) (Jania, Jania ODT, Rhonda), Pancreatitis (DC), Opioid Safety Activity Restrictions/Additional Instructions: Continue with liquid diet for next 2 days and advance gradually to a regular diet for the next 1 week. Take multiple small frequent meals Stand Alone Forms: Work/School Release Discharge Attestations Time Spent in Discharge Care*: greater than 30 min Specific Discharge Activities: educating patient, discussing with pcp/other providers, discussing with clinical case manager/social workers/dc planners, documenting/other paperwork and evaluating patient/reviewing data Status at Discharge: Cognitive status at discharge: cognitively intact , Behavioral status at discharge: cooperative , Functional status at discharge: independent ambulation , Overall status at discharge: patient is back to baseline Quality Metrics Clinical Quality Measures [ No reported AMI, CVA or VTE this stay] Coding Level of Care Code 65238 Total time (in minutes) for Discharge: 40 Diagnoses Acute pancreatitis K85.90 Abdominal pain R10.9
[2023-07-23 14:33] VITALS: BP 151/93; PULSE 57; RESP 17; TEMP 36.8; O2SAT 95
== END 2023-07-23 14:30 | disposition home or self-care (01) ==
LOC: ER 13:05 → MEDSURG 14:50
PROVIDERS: Admitting Provider Internal Medicine; Emergency Provider Internal Medicine; PCP Family Medicine; Visit Provider Student in an Organized Health Care Education/Training Program
DX: K85.90 Acute pancreatitis without necrosis or infection, unspecified (principal); R10.9 Unspecified abdominal pain; F17.210 Nicotine dependence, cigarettes, uncomplicated; R11.2 Nausea with vomiting, unspecified
CPT/HCPCS: 36415; 74177; 76700; 80053; 83690; 83735; 85025; 87426; 87804; 96374; 96375; 96376; 99285; 99291; C9113; G0378; J1885; J2270; J2405; J2543; J3010; J7030; J7120; Q9967

== ENCOUNTER 2023-10-12 09:39 | Emergency (ER) | payer OTHER, SELFPAY ==
[2023-10-12 09:52] VITALS: BP 142/92; PULSE 85; RESP 18; TEMP 36.4; O2SAT 97; BMI 33.9
[2023-10-12 10:24] LABS: Basophils % 0.2 %; Eosinophils # 0.1 10^3/uL (0.0-0.8); Eosinophils % 0.4 %; Lymphocytes # 0.7 10^3/uL (0.8-4.8); Lymphocytes % 4.3 %; Mean Corpuscular HGB Conc 34.2 g/dL (30-55); Mean Corpuscular Hemoglobin 29.3 pg (27-33); Mean Corpuscular Volume 85.5 fl (82-101); Mean Platelet Volume 10.3 fL (7.4-10.4); Monocytes # 0.7 10^3/uL (0.2-0.9); Monocytes % 3.9 %; Neutrophils # 15.28 10^3/uL (1.8-7.7); Neutrophils % 90.9 %; Nucleated Red Blood Cells % 0 %; Platelet Count 322 10^3/cmm (157-399); Red Blood Count 6.08 10^6/uL (3.85-5.65); Red Cell Distribution Width 12.8 % (12.1-15.1)
[2023-10-12 10:48] LABS: Alanine Aminotransferase 28 U/L (0-41); Alkaline Phosphatase 114 U/L (40-130); Anion Gap 20.2 (5-19); Aspartate Amino Transferase 22 U/L (0-40); Blood Urea Nitrogen 18 mg/dL (6-20); Calcium 9.9 mg/dL (8.5-10.5); Carbon Dioxide 17 mmol/L (22-29); Chloride 105 mmol/L (98-107); Globulin 3.2 g/dL (1.3-4.6); Glomerular Filtration Rate 93.9 mL/min (90-130); Glucose 149 mg/dL (65-115); Lipase 26 U/L (13-60); Osmolality Calculated 291 mOsm/kg (285-295); Potassium 4.2 mmol/L (3.5-5.1); Sodium 138 mmol/L (136-145); Total Bilirubin 0.3 mg/dL (0.15-1.2); Total Protein 8.2 g/dL (6.6-8.7)
--- NOTE | 2023-10-12 10:56 | W.ED.NAVMDI ---
HPI - Nausea/Vomiting/Diarrhea General: Chief complaint: Nausea/Vomiting/Diarrhea Stated complaint: n/v/d Time Seen by Provider: 10/12/23 09:41 Source: patient Mode of arrival: ambulatory Limitations: no limitations History of Present Illness: Patient is a 37-year-old female presents to ED today for evaluation of vomiting and diarrhea starting at 3 AM this morning. Patient states he has had multiple episodes of nonbloody emesis as well as watery diarrhea. He states yesterday for dinner he was fixing mushrooms with pork and felt like one of the mushrooms was possibly slimy and questions whether he got food poisoning from this. He is having lower abdominal cramping that is intermittent and briefly alleviated after defecation. He is not running fevers. No sick contacts. MD elicited complaint: vomiting, diarrhea and abdominal pain Onset (ago): hour(s) Description of diarrhea: watery Associated abdominal pain: Yes Location of pain: Diffuse Pain consistency: intermittent Severity: mild Quality: cramping Relieving factors: bowel movement Associated symtoms: Denies chest pain, dizziness, dysuria, fatigue, headache(s) or malaise Review of Systems Const: Denies: fever(s), chills, body aches, fatigue or malaise Card: Denies: chest pain Resp: Denies: dyspnea GI: Reports: abdominal pain, vomiting and diarrhea; Denies: hematemesis : Denies: flank pain, dysuria or hematuria Musc: Denies: neck pain, back pain, extremity pain or joint pain Skin/Breast: Denies: rash Neuro: Denies: headache(s), numbness in extremities, weakness in extremities, sensory changes or dizziness [facility] ED PFSH: Social History Smoking and tobacco/nicotine status: current every day tobacco/nicotine user cigarettes Packs smoked per day: 0.5 Alcohol intake: never Substance/Drug Use: current Substance/Drug use frequency: daily Physical Exam Const: COMMON NORMALS: no acute distress, average body habitus, patient oriented x3, no limitations, healthy appearing, alert and well nourished Eye: COMMON NORMALS: no scleral icterus Resp: COMMON NORMALS: normal respiratory effort and clear to auscultation bilaterally AUSCULTATION: clear to auscultation bilaterally Cardio: COMMON NORMALS: regular rate and regular rhythm RATE: regular rate RHYTHM: regular rhythm GI: COMMON NORMALS: Normal to inspection, nondistended, normoactive bowel sounds present, Soft to palpation, No hepatosplenomegaly present and no masses INSPECTION: Yes normal to inspection AUSCULTATION: Yes normoactive bowel sounds PALPATION: Yes Soft to palpation, Yes Tenderness to palpation present (GI) (mild lower-non surgical exam), No Guarding due to palpation present (GI), No Rigid due to palpation and Yes No hepatosplenomegaly present Back/Pelvis: COMMON NORMALS: thoracic and lumbar spine normal to inspection Extremity: GENERAL: Yes normal exam except as noted Neuro: [place]STILLO COMA SCALE: document GCS findings [place] coma scale eye opening: Spontaneous Castillo coma scale verbal response: Orientated Castillo coma scale motor response: Obey commands Castillo coma scale total score: 15 COMMON NORMALS: patient oriented x3, moves all extremities, no focal motor deficits and no sensory deficits noted SENSORIUM/ORIENTATION: Yes alert Skin: COMMON NORMALS: no rashes or lesions noted GENERAL SKIN EXAM: no rashes or lesions noted Course Vital Signs: Vital signs: Vital Signs Temperature 97.5 F L 10/12/23 09:52 Pulse Rate 80 10/12/23 11:15 Respiratory Rate 18 10/12/23 12:23 Blood Pressure 150/80 10/12/23 11:15 Pulse Oximetry 98 10/12/23 12:23 Oxygen Delivery Me thod Room Air 10/12/23 11:15 MDM - Nausea/Vomiting/Diarrhea Medical Decision Making Patient's blood work overall is unremarkable. Most likely gastroenteritis. Discussed self-limited disease and conservative therapies at home mainly consisting of hydration. Return ED precautions given. Differential Diagnosis Likely food poisoning, gastroenteritis and dehydration Medical Records I reviewed the patient's medical records. Lab Data I reviewed the patient's lab results. 10/12/23 10:06 10/12/23 10:06 Laboratory Results WBC 16.80 10^3/uL (3.29-11.43) H 10/12/23 10:06 RBC 6.08 10^6/uL (3.85-5.65) H 10/12/23 10:06 Hgb 17.80 g/dL (11.27-16.99) H 10/12/23 10:06 Hct 52.0 % (37-53) 10/12/23 10:06 MCV 85.5 fl (82-101) 10/12/23 10:06 MCH 29.3 pg (27-33) 10/12/23 10:06 MCHC 34.2 g/dL (30-55) 10/12/23 10:06 RDW 12.8 % (12.1-15.1) 10/12/23 10:06 Plt Count 322 10^3/cmm (157-399) 10/12/23 10:06 MPV 10.3 fL (7.4-10.4) 10/12/23 10:06 Neut % (Auto) 90.9 % 10/12/23 10:06 Lymph % (Auto) 4.3 % 10/12/23 10:06 [place] % (Auto) 3.9 % 10/12/23 10:06 Eos % (Auto) 0.4 % 10/12/23 10:06 Baso % (Auto) 0.2 % 10/12/23 10:06 Neut # (Auto) 15.28 10^3/uL (1.8-7.7) H 10/12/23 10:06 Lymph # (Auto) 0.7 10^3/uL (0.8-4.8) L 10/12/23 10:06 [place] # (Auto) 0.7 10^3/uL (0.2-0.9) 10/12/23 10:06 Eos # (Auto) 0.1 10^3/uL (0.0-0.8) 10/12/23 10:06 Baso # (Auto) 0.0 10^3/uL (0.0-0.1) 10/12/23 10:06 Nucleated RBC % (auto) 0 % 10/12/23 10:06 Nucleated RBCs # 0.0 /100WBC 10/12/23 10:06 Sodium 138 mmol/L (136-145) 10/12/23 10:06 Potassium 4.2 mmol/L (3.5-5.1) 10/12/23 10:06 Chloride 105 mmol/L (98-107) 10/12/23 10:06 Carbon Dioxide 17 mmol/L (22-29) L 10/12/23 10:06 Anion Gap 20.2 (5-19) H 10/12/23 10:06 BUN 18 mg/dL (6-20) 10/12/23 10:06 Creatinine 0.9 mg/dL (0.7-1.2) 10/12/23 10:06 GFR Calculation 93.9 mL/min (90-130) 10/12/23 10:06 Glucose 149 mg/dL (65-115) H 10/12/23 10:06 Calculated Osmolality 291 mOsm/kg (285-295) 10/12/23 10:06 Calcium 9.9 mg/dL (8.5-10.5) 10/12/23 10:06 Total Bilirubin 0.3 mg/dL (0.15-1.2) 10/12/23 10:06 AST 22 U/L (0-40) 10/12/23 10:06 ALT 28 U/L (0-41) 10/12/23 10:06 Alkaline Phosphatase 114 U/L (40-130) 10/12/23 10:06 Total Protein 8.2 g/dL (6.6-8.7) 10/12/23 10:06 Albumin 5.0 g/dL (3.5-5.2) 10/12/23 10:06 Globulin 3.2 g/dL (1.3-4.6) 10/12/23 10:06 Lipase 26 U/L (13-60) 10/12/23 10:06 Urine Color Yellow (Yellow) 10/12/23 11:37 Urine Appearance Cloudy (CLEAR) A 10/12/23 11:37 Urine pH 5 (5-7) 10/12/23 11:37 Ur Specific [place] 1.020 (1.005-1.030) 10/12/23 11:37 Urine Protein Neg (Negative) 10/12/23 11:37 Urine Glucose (UA) Norm (Normal) 10/12/23 11:37 Urine Ketones 1+ (Negative) H 10/12/23 11:37 Urine Blood Neg (Negative) 10/12/23 11:37 Urine Nitrate Negative (Negative) 10/12/23 11:37 Urine Bilirubin Neg (Negative) 10/12/23 11:37 Urine Urobilinogen Neg mg/dL (Negative) 10/12/23 11:37 Ur Leukocyte Esterase Negative (Negative) 10/12/23 11:37 Urine RBC 0-4 /hpf (0-2) H 10/12/23 11:37 Urine WBC 0-4 /hpf (0-5) H 10/12/23 11:37 Ur Squamous Epith Cells Rare /hpf (0-5) 10/12/23 11:37 Amorphous Sediment 3+ /hpf 10/12/23 11:37 Urine Bacteria None /hpf (NONE) 10/12/23 11:37 Urine Mucus 3+ /hpf 10/12/23 11:37 No radiology studies performed this visit Discharge Plan Discharge Patient Disposition: Home Clinical Impression: Gastroenteritis Condition: Stable Prescriptions: New ondansetron 4 mg tablet,disintegrating 4 mg PO Q8H PRN (Reason: nausea and vomiting) Qty: 14 0RF No Action ibuprofen 200 mg Tablet 200 mg PO Q6H PRN (Reason: Pain) Discharge Orders: Discharge ED (Routine); Ordered 10/12/23 Ordered By: Priya Velez Referrals: Mic Em MD [Primary Care Provider] - Patient Instructions: Gastroenteritis (DC) Coding Level of Care Code ED Capture Manager for [facility]g Becca
[2023-10-12 11:15] VITALS: BP 150/80; PULSE 80; RESP 16; O2SAT 95
[2023-10-12] MEDS: ondansetron 2 mg/ML SDV 2 mL 4 MG IVP (11:24)
[2023-10-12] MEDS: sodium chloride 0.9% 1,000 ML 999 ML IV (11:26)
[2023-10-12 12:07] LABS: Add Urine Microscopic? YES; Bilirubin Urine Neg (Negative); Blood Urine Neg (Negative); Glucose Urine UA Norm (Normal); Ketones Urine 1+ (Negative); Leukocyte Esterase Urine Negative (Negative); Nitrate Urine Negative (Negative); Protein Urine Neg (Negative); Urine Appearance Cloudy (CLEAR); Urine Color Yellow (Yellow); Urobilinogen Urine Neg (Negative); pH Urine 5 (5-7)
[2023-10-12 12:08] LABS: Add Urine Culture? No; Amorphous Sediment Urine 3+ /hpf; Mucus Urine 3+ /hpf; RBC Urine 0-4 /hpf (0-2); Squamous Epithelial Cell Urine RARE /hpf (0-5); WBC Urine 0-4 /hpf (0-5)
[2023-10-12 12:23] VITALS: RESP 18; O2SAT 98
[2023-10-12] MEDS: morphine 4 mg/mL SDV 1 mL 2 MG IVP (12:23)
[2023-10-12] MEDS: metoclopramide 5 mg/mL SDV 2 mL 10 MG IVP (12:40)
[2023-10-12 13:00] VITALS: BP 142/110; PULSE 82; RESP 15; O2SAT 96
[2023-10-12 13:28] VITALS: BP 142/110; PULSE 82; RESP 15; TEMP 36.4; O2SAT 96
== END 2023-10-12 13:29 | disposition home or self-care (01) ==
PROVIDERS: Emergency Provider Physician Assistant; PCP Family Medicine
DX: K52.9 Noninfective gastroenteritis and colitis, unspecified (principal); Z72.0 Tobacco use
CPT/HCPCS: 36415; 80053; 81001; 83690; 85025; 96374; 96375; 99284; J2270; J2405; J2765; J7030

== ENCOUNTER 2025-06-08 18:37 | Emergency (ER) | payer OTHER, SELFPAY ==
[2025-06-08 18:43] VITALS: BP 171/108; PULSE 67; RESP 18; TEMP 36.4; O2SAT 97; BMI 32.3
--- OUTSIDE RECORDS SUMMARY | 2025-06-08 18:45 | XMS_ITS | Clinical Summary ---
Author Organization [facility] Address [address] [place] [address] Care Team Providers Care Wood Repatcher Name Role Phone Unavailable Primary Care Provider Unavailabl e Allergies Active Allergy Reactions Criticality Noted Date Comments Codedelores Hives High 03/10/2021 Medications No known medications Active Problems No known active problems Social History Tobacco Use Types Packs/Day Years Used Date Smoking Tobacco: Every Day Cigarettes Tobacco Cessation:Ready to Q uit: No; Counseling Given: Yes Alcohol Use Standard Drinks/Week Comments Never 0 (1 standard drink = 0.6 oz pur e alcohol) Sex and Gender Information Value Date Recorded Sex Assigned at Not on file Legal Sex Male 1:41 PM CDT Gender Identity Not on file Sexual Orientation Not on file Last Filed Vital Signs Vital Sign Reading Time Taken Comments Blood Pressure 120/66 03/10/2021 2:04 PM CDT Pulse 83 03/10/2021 2:04 PM CDT Temperature 36.3 C (97.3 F) 03/10/2021 2:04 PM CDT Respiratory Rate - - Oxygen Saturation 96% 03/10/2021 2:04 PM CDT Inhaled Oxygen Concentration - - Weight 85.7 kg (189 lb) 03/10/2021 2:04 PM CDT Height 182.9 cm (6') 03/10/2021 2:04 PM CDT Body Mass Index 25.63 03/10/2021 2:04 PM CDT Plan of Treatment Health Maintenance Due Date Last Done Comments DTAP/TDAP/TD VACCINES (1 - Tdap) 12/01/2002 HEPATITIS B VACCINES (1 of 3 - 19+ 3-dose series) 11/22 HPV VACCINES (1 - 3-dose SCDM series) 12/01/2010 INFLUENZA VACCINE (#1) 2025
--- OUTSIDE RECORDS SUMMARY | 2025-06-08 18:45 | XMS_ITS | Clinical Summary ---
Author Organization [facility] Address [address] [place] [address] Care Team Providers Care Clinical Trial Specialist Name Role Phone Unavailable Primary Care Provider Unavailabl e Allergies Active Allergy Reactions Criticality Noted Date Comments Codeine Hives High 03/10/2021 Medications No known medications Active Problems Problem Noted Date Diagnosed Date Epigastric abdominal pain 04/12/2024 Bacterial gastroenteritis 04/12/2024 Encounters Date Type Department Care Team Description 05/26/2025 External Device Data [facility] ABSTRACTION Provider, Abstract 05/26/2025 External Device Data [facility] ABSTRACTION Provider, Abstract 05/13/2025 External Device Data [facility] ABSTRACTION Provider, Abstract 05/12/2025 External Device Data [facility] ABSTRACTION Provider, Abstract 05/12/2025 External Device Data [facility] ABSTRACTION Provider, Abstract 04/14/2025 External Device Data [facility] ABSTRACTION Provider, Abstract 04/14/2025 External Device Data [facility] ABSTRACTION Provider, Abstract 03/24/2025 External Device Data [facility] ABSTRACTION Provider, Abstract 03/24/2025 External Device Data [facility] ABSTRACTION Provider, Abstract 03/24/2025 External Device Data [facility] ABSTRACTION Provider, Abstract 03/17/2025 11:02 AM CDT - 03/17/2025 3:03 PM CDT Emergency [facility] Emergency Medicine [address] [place] [id number] Robert Silverio, Nausea and vomiting, unspecified vomiting type (Primary Dx) Discharge Disposition: Home or Self Care 03/17/2025 External Device Data [facility] ABSTRACTION Provider, Abstract 03/17/2025 Travel 03/11/2025 External Device Data [facility] ABSTRACTION Provider, Abstract 03/10/2025 External Device Data [facility] ABSTRACTION Provider, Abstract from Last 3 Months Social History Tobacco Use Types Packs/Day Years Used Date Smoking Tobacco: Every Day Cigarettes Smokeless Tobacco: Never Tobacco Cessation:Ready to Q uit: Not Asked; Counseling Given: Not Answered Alcohol Use Standard Drinks/Week Comments Never 0 (1 standard drink = 0.6 oz pur e alcohol) Feeling Safe Answer Date Recorded Are you in a relationship wi th someone who hurts you emotionally and/or physically? No 03/17/2025 Sex and Gender Information Value Date Recorded Sex Assigned at Not on file Legal Sex Male 1:41 PM CDT Gender Identity Not on file Sexual Orientation Not on file Last Filed Vital Signs Vital Sign Reading Time Taken Comments Blood Pressure 152/104 03/17/2025 2:00 PM CDT Pulse 76 03/17/2025 2:00 PM CDT Temperature 36.2 C (97.1 F) 03/17/2025 11:05 AM CDT Respiratory Rate 18 03/17/2025 11:0 5 AM CDT Oxygen Saturation 98% 03/17/2025 2:00 PM CDT Inhaled Oxygen Concentration - - Weight 105.1 kg (231 lb 12.8 oz) 2024 11:05 AM CDT Height 182.9 cm (6') 03/17/2025 11:05 AM CDT Body Mass Index 31.44 03/17/2025 11:05 AM CDT Plan of Treatment Health Maintenance Due Date Last Done Comments Pre-Diabetes and Diabetes Screening 1983 DTAP/TDAP/TD VACCINES (6 - Tdap) 01/07/1999 01/06/1999, 01/08/1989, 07/12/1987, Additional history exists HEPATITIS B VACCINES (3 of 3 - 3-dose series) 03/12/2001 12/26/2000, 11/20/2000 HPV VACCINES (1 - 3-dose SCD M series) 12/01/2010 INFLUENZA VACCINE (#1) 2025 Insurance Denise SHEIKH [address] [id number] [facility] [place]
--- NOTE | 2025-06-08 21:03 | ED_ITS ---
HPI - Abdominal Pain 2 General: Chief Complaint: Abdominal Pain Stated Complaint: Vomiting\Feels Bad Time Seen by Provider: 06/08/25 19:51 History of Present Illness: 39-year-old man with a history of pancre atitis in the past who presents to the emergency room with epigastric abdominal pain and nausea and vomiting since yesterday. He says he had pancreatitis once in the past. No diarrhea. No fever. Related Data Home Medications ?Medication ?Instructions ?Recorded ?Confirmed ibuprofen 200 mg tablet 200 mg PO Q6H PRN Pain 07/2110/12/23 Previous Rx's ?Medication ?Instructions ?Recorded ondansetron 4 mg disintegrating 4 mg PO Q8H PRN nausea and 10/12/23 tablet vomiting #14 tabs ciprofloxacin HCl 500 mg tablet 500 mg PO BID 7 days # 14 tabs 06/08/25 metronidazole 500 mg tablet 500 mg PO Q8H 7 days #21 t abs 06/08/25 ondansetron 8 mg disintegrating 8 mg PO Q6H #14 tabs 0 06/08/25 tablet promethazine 25 mg rectal 25 mg MA Q6H PRN nausea and 06/08/25 suppository vomiting #12 ea Allergies Allergy/AdvReac Type Severity Reaction Status Date / Time codeine Allergy ALGY-Hives Verified 07/21/23 12:49 Review of Systems 2 Narrative: Constitutional symptoms: Negative except as documented in HPI. Skin symptoms: Negative except as documented in HPI. Eye symptoms: Negative except as documented in HPI. ENMT symptoms: Negative except as documented in HPI. Respiratory symptoms: Negative except as documented in HPI. Cardiovascular symptoms: Negative except as documented in HPI. Gastrointestinal symptoms: Negative except as documented in HPI. Genitourinary symptoms: Negative except as documented in HPI. Musculoskeletal symptoms: Negative except as documented in HPI. Neurologic symptoms: Negative except as documented in HPI. Psychiatric symptoms: Negative except as documented in HPI. Endocrine symptoms: Negative except as documented in HPI. PFSH ED 2 PFSH: Social History Smoking and tobacco/nicotine status: current every day tobacco/nicotine user cigarettes Packs smoked per day: 0.5 Alcohol intake: never Substance/Drug Use: current Substance/Drug use frequency: daily Physical Exam 2 Narrative: EXAM NARRATIVE: General: Alert, no acute distress. Skin: Warm, dry. Head: Normocephalic, atraumatic. Neck: Supple, trachea midline. Eye: Extraocular movements are intact. Ears, nose, mouth and throat: Tacky oral mucosa Cardiovascular: Regular, Normal peripheral perfusion. Respiratory: Lungs are clear to auscultation, respirations are non-labored, breath sounds are equal, Symmetrical chest wall expansion. Gastrointestinal: Soft, diffuse upper abdominal tenderness to palpation, Non distended Musculoskeletal: Normal ROM, no deformity. Neurological: Alert and oriented, No focal neurological deficit observed. Psychiatric: Cooperative, appropriate mood & affect. Course 2 Vital Signs: Vital signs: Vital Signs Temperature 97.6 F 06/08/25 18:43 Pulse Rate 67 06/08/25 18:43 Respiratory Rate 18 06/08/25 18:43 Blood Pressure 171/108 06/08/25 18:43 Pulse Oximetry 97 06/08/25 18:43 Oxygen Delivery Me thod Room Air 06/08/25 18:43 MDM - Abdominal Pain Medical Decision Making Medical decision making: Differential diagnosis including but not limited to and based on the above HPI, review of systems and physical exam: In this patient with epigastric pain differential would include cholelithiasis or cholecystitis. Hepatitis. Diverticulitis. Constipation. UTI. colitis. small bowel obstruction. crohn's flare. pancreatitis. gastritis. peptic ulcer. also concern for acute cardiac event. Orders placed to evaluate differential diagnosis based on the above differential, HPI and physical exam Lab Review: Laboratory results were reviewed and interpreted by myself the emergency room physician. Mild leukocytosis. No anemia. No renal failure. Urine is positive for marijuana. 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 CT of the abdomen pelvis shows thickening of the colon most suggestive of diffuse colitis. This was reviewed and interpreted by myself the emergency room physician. I also reviewed the radiology report. I reviewed the patient's medical record. Reexamination: Patient required multiple doses of antiemetics to get this stopped. Assessment and plan: Colitis Dehydration ? IV fluids, IV Zofran, then IV Benadryl and Compazine. Also an additional dose of Zofran - Discharged home - Discussed plan with patient. Answered any questions. - Evaluation and treatment of this problem were appropriate in the emergency setting. Lab Data 06/08/25 21:12 06/08/25 21:10 Labs/Radiology: Radiology Impressions Abdomen/Pelvis CT 06/08/25 22:24 IMPRESSION: 1. Findings of diffuse thickening of the colon most suggestive of diffuse colitis correlate and follow-up as indicated 2. Hepatosplenomegaly with fatty infiltration of the liver. 3. Normal appendix. Laboratory Results WBC 12.30 10^3/uL (3.29-11.43) H 06/08/25 21:12 RBC 5.66 10^6/uL (3.85-5.65) H 06/08/25 21:12 Hgb 16.50 g/dL (11.27-16.99) 06/08/25 21:12 Hct 48.8 % (37-53) 06/08/25 21:12 MCV 86.2 fl (82-101) 06/08/25 21:12 MCH 29.2 pg (27-33) 06/08/25 21:12 MCHC 33.8 g/dL (30-55) 06/08/25 21:12 RDW 13.5 % (12.1-15.1) 06/08/25 21:12 Plt Count 265 10^3/cmm (157-399) 06/08/25 21:12 MPV 10.4 fL (7.4-10.4) 06/08/25 21:12 Neut % (Auto) 91.8 % 06/08/25 21:12 Lymph % (Auto) 6.2 % 06/08/25 21:12 [place] % (Auto) 1.2 % 06/08/25 21:12 Eos % (Auto) 0.1 % 06/08/25 21:12 Baso % (Auto) 0.2 % 06/08/25 21:12 Neut # (Auto) 11.29 10^3/uL (1.8-7.7) H 06/08/25 21:12 Lymph # (Auto) 0.8 10^3/uL (0.8-4.8) 06/08/25 21:12 [place] # (Auto) 0.2 10^3/uL (0.2-0.9) 06/08/25 21:12 Eos # (Auto) 0.0 10^3/uL (0.0-0.8) 06/08/25 21:12 Baso # (Auto) 0.0 10^3/uL (0.0-0.1) 06/08/25 21:12 Nucleated RBC % (auto) 0 % 06/08/25 21:12 Nucleated RBCs # 0.0 /100WBC 06/08/25 21:12 Sodium 139 mmol/L (136-145) 06/08/25 21:10 Potassium 4.1 mmol/L (3.5-5.1) 06/08/25 21:10 Chloride 103 mmol/L (98-107) 06/08/25 21:10 Carbon Dioxide 22 mmol/L (22-29) 06/08/25 21:10 Anion Gap 18.1 (5-19) 06/08/25 21:10 BUN 9 mg/dL (6-20) 06/08/25 21:10 Creatinine 0.7 mg/dL (0.7-1.2) 06/08/25 21:10 GFR Calculation 124.3 mL/min (90-130) 06/08/25 21:10 Glucose 135 mg/dL (65-115) H 06/08/25 21:10 Calculated Osmolality 289 mOsm/kg (285-295) 06/08/25 21:10 Lactic Acid 1.7 mmol/L (0.5-2.2) 06/08/25 21:12 Calcium 9.1 mg/dL (8.5-10.5) 06/08/25 21:10 Total Bilirubin 0.3 mg/dL (0.15-1.2) 06/08/25 21:10 AST 18 U/L (0-40) 06/08/25 21:10 ALT 26 U/L (0-41) 06/08/25 21:10 Alkaline Phosphatase 120 U/L (40-130) 06/08/25 21:10 C-Reactive Protein 3.0 mg/L (0.0-4.9) 06/08/25 21:10 Total Protein 7.4 g/dL (6.6-8.7) 06/08/25 21:10 Albumin 4.6 g/dL (3.5-5.2) 06/08/25 21:10 Globulin 2.8 g/dL (1.3-4.6) 06/08/25 21:10 Lipase 21 U/L (13-60) 06/08/25 21:10 Amorphous Sediment Not Reportable 06/08/25 22:45 Urine Opiates Screen Positive ng/mL (Negative) H 06/08/25 22:45 Ur Barbiturates Screen Negative ng/mL (Negative) 06/08/25 22:45 Ur Phencyclidine Scrn Negative ng/mL (Negative) 06/08/25 22:45 Ur Amphetamines Screen Negative ng/mL (Negative) 06/08/25 22:45 U Benzodiazepines Scrn Negative ng/mL (Negative) 06/08/25 22:45 Urine Cocaine Screen Negative ng/mL (Negative) 06/08/25 22:45 U Marijuana (THC) Screen Positive ng/mL (Negative) H 06/08/25 22:45 All radiology interpretation(s) finalized by discharge Discharge Plan Discharge Patient Disposition: Home Clinical Impression: Colitis, Dehydration Condition: Stable Prescriptions: New promethazine 25 mg suppository 25 mg MA Q6H PRN (Reason: nausea and vomiting) Qty: 12 0RF metronidazole 500 mg tablet 500 mg PO Q8H 7 Days Qty: 21 0RF ciprofloxacin HCl 500 mg tablet 500 mg PO BID 7 Days Qty: 14 0RF ondansetron 8 mg tablet,disintegrating 8 mg PO Q6H Qty: 14 0RF Rx Instructions: Take 1/2-1 tab every 6 hours as needed for nausea and vomiting No Action ibuprofen 200 mg Tablet 200 mg PO Q6H PRN (Reason: Pain) ondansetron 4 mg tablet,disintegrating 4 mg PO Q8H PRN (Reason: nausea and vomiting) Qty: 14 0RF Discharge Orders: Discharge ED (Routine); Ordered 06/08/25 Ordered By: Carmelina Sapp Discharge Diet: Advance as tolerated Discharge Activity: Increase activity as tolerated Patient Instructions: Colitis (ED), Opioid Safety, Pain Management, Patient Portal & [place] Instructions Activity Restrictions/Additional Instructions: Thank you for choosing [facility] for your healthcare needs today. You have been screened and evaluated and felt safe for discharge. Health conditions do change or evolve sometimes and as such it is important that you follow up with your Primary Doctor to be re checked, 3-5 days is a general good time frame for follow up. You are always welcome to return to the ED for re assessment if your symptoms are worsening or you have new concerns Print Language: Hebrew Coding Level of Care Code ED [employer] Worker for [place]
[2025-06-08 21:30] LABS: Hematocrit 48.8 % (37-53); Hemoglobin 16.50 g/dL (11.27-16.99); Mean Corpuscular HGB Conc 33.8 g/dL (30-55); Mean Corpuscular Hemoglobin 29.2 pg (27-33); Mean Corpuscular Volume 86.2 fl (82-101); Nucleated Red Blood Cells % 0 %; Platelet Count 265 10^3/cmm (157-399); Red Blood Count 5.66 10^6/uL (3.85-5.65); White Blood Count 12.30 10^3/uL (3.29-11.43)
[2025-06-08] MEDS: HYDROmorphone 0.5 MG/0.5 ML INJ 1 MG IVP (21:38)
[2025-06-08] MEDS: ondansetron 2 mg/ML SDV 2 mL 8 MG IVP ×2 (21:38→23:59)
[2025-06-08 21:55] LABS: Alanine Aminotransferase 26 U/L (0-41); Albumin Level 4.6 g/dL (3.5-5.2); Alkaline Phosphatase 120 U/L (40-130); Anion Gap 18.1 (5-19); Aspartate Amino Transferase 18 U/L (0-40); Blood Urea Nitrogen 9 mg/dL (6-20); Calcium 9.1 mg/dL (8.5-10.5); Carbon Dioxide 22 mmol/L (22-29); Chloride 103 mmol/L (98-107); Creatinine Clr Calc Pharmacy 176.2789; Globulin 2.8 g/dL (1.3-4.6); Glucose 135 mg/dL (65-115); Lipase 21 U/L (13-60); Osmolality Calculated 289 mOsm/kg (285-295); Potassium 4.1 mmol/L (3.5-5.1); Sodium 139 mmol/L (136-145); Total Protein 7.4 g/dL (6.6-8.7)
[2025-06-08 21:56] LABS: Lactic Sepsis W/Reflex 1.7 mmol/L (0.5-2.2)
--- NOTE | 2025-06-08 22:24 | CTR_ITS ---
PROCEDURE INFORMATION: Exam: CT Abdomen And Pelvis With Contrast Exam date and time: 06/08/2025 10:32 PM Age: 39 years old Clinical indication: Abdominal pain TECHNIQUE: Imaging protocol: Computed tomography of the abdomen and pelvis with contrast. Radiation optimization: All CT scans at this facility use at least one of these dose optimization techniques: automated exposure control; mA and/or kV adjustment per patient size (includes targeted exams where dose is matched to clinical indication); or iterative reconstruction. Contrast material: OMNI 350; Contrast volume: 100 ml; Contrast route: INTRAVENOUS (IV); COMPARISON: CT abdomen pelvis w con* [id number] 07/21/2023 11:59 AM RADIATION DOSE METRICS: Total DLP (mGy-cm): 1118.93 FINDINGS: Lungs: There are findings of dependent atelectasis lower lobes. Calcified granuloma present left lower lobe. Liver: There are findings of diffuse fatty infiltration of the liver which is enlarged measuring 20 cm. Spleen is enlarged measuring 13 cm. Gallbladder and biliary ducts: Unremarkable. No calcified stones. No ductal dilation. Pancreas: Unremarkable. No ductal dilation. Spleen: See Liver finding. Adrenal glands: Normal. No mass. Kidneys and ureters: Unremarkable. No hydronephrosis. Stomach and bowel: Bowel demonstrate decompressed thickened colon nonspecific correlate to exclude colitis Appendix: Appendix normal Intraperitoneal space: No intra abdominopelvic free air or free fluid present. Vasculature: Unremarkable. No abdominal aortic aneurysm. Lymph nodes: Unremarkable. No enlarged lymph nodes. Urinary bladder: Urinary bladder shows no nodularity. Reproductive: Unremarkable as visualized. Bones/joints: Unremarkable. No acute fracture. Soft tissues: Unremarkable. Other findings: There is presence of a left midpole [address]/CT abdomen pelvis w con* [id number] IMPRESSION: 1. Findings of diffuse thickening of the colon most suggestive of diffuse colitis correlate and follow-up as indicated 2. Hepatosplenomegaly with fatty infiltration of the liver. 3. Normal appendix.
[2025-06-08] MEDS: diphenhydrAMINE 50 mg/mL SDV 1mL IVP (22:50)
[2025-06-08] MEDS: iohexol 350 mg/mL 500 mL Btl (per mL) IV (22:54)
[2025-06-08 23:23] LABS: Glucose Urine UA Negative (Normal); Nitrate Urine Negative (Negative)
[2025-06-08 23:30] LABS: PCP Screen Urine Negative (Negative)
[2025-06-08 23:51] LABS: Specific Gravity, Urine 1.055 (1.005-1.030)
== END 2025-06-09 00:24 | disposition home or self-care (01) ==
PROVIDERS: Emergency Provider Emergency Medicine
DX: K52.9 Noninfective gastroenteritis and colitis, unspecified (principal); E86.0 Dehydration; F17.210 Nicotine dependence, cigarettes, uncomplicated
CPT/HCPCS: 36415; 74177; 80053; 80306; 81001; 83605; 83690; 85025; 86140; 87040; 96374; 96375; 96376; 99285; J1171; J1200; J2405; J7030